=== PATIENT | male | born 2000 | race Caucasian/White ===

== ENCOUNTER 2020-11-30 21:30 | Inpatient (IN) | payer OTHER, SELFPAY ==
[2020-11-30 21:31] VITALS: BP 138/89; PULSE 69; RESP 15; TEMP 36.8; O2SAT 100; BMI 25.0
[2020-11-30 21:33] VITALS: BP 138/89; PULSE 69; RESP 15; TEMP 36.8; O2SAT 100
--- NOTE | 2020-11-30 22:09 | EX.ED.DYSGE1 ---
HPI History of Present Illness Chief Complaint: Fever Informant: patient and parent Narrative Narrative: Patient presents with sores on his legs along with some nausea vomiting and generalized malaise. About 10 days ago he started with multiple boils or superficial abscesses on both lower legs. No known exposure. They were draining purulent material. They are improving now. Over the last week he has had some mild myalgias, decreased energy. His appetite has been down. He did have some nausea and vomiting but has not vomited since earlier today. That portion is feeling a little better. He has never had abdominal pain or back pain. No cough or trouble breathing. He has had some myalgias but no focal headache. No confusion. He denies any chronic medical conditions No current medications No allergies No surgeries Lives with family, no one else ill. [facility] Home Medications NK 11/30/20 [History Last Taken Unknown] Allergy/AdvReac Type Severity Reaction Status Date / Time No Known Allergies Allergy Verified 11/30/20 21:34 Social History Smoking Status: Former smoker ROS ROS ED Constitutional Constitutional ED: Reports chills and fever(s); Denies weight loss Eyes Eyes: Denies change in vision ENT ENT ED: Reports other Details: On specific questioning, patient states he has had about 2 mild nosebleeds over the past week. ; Denies rhinorrhea or sore throat Cardiovascular Cardiovascular: Denies chest pain or palpitations Respiratory/Chest Respiratory/Chest: Denies cough, dyspnea, dyspnea on exertion or sputum Gastrointestinal Gastrointestinal: Reports diarrhea, nausea, vomiting and other Details: Nausea vomiting as above. He also had some mild diarrhea for 5 days ago but that seems to have resolved. ; Denies abdominal pain, constipation or melena Genitourinary Genitourinary ED: Denies dysuria or hematuria Musculoskeletal Musculoskeletal: Reports myalgias; Denies neck pain Integumentary Reports abscess and rash; Denies Abrasions Neurologic Neurologic: Denies headache(s), paresthesias or weakness Endocrine Endocrinology: Denies polydipsia or polyuria Allergic/Immunologic Allergic/Immunologic ED: Denies urticaria EXAM Physical Exam Const Vital Signs: 11/30/20 21:31 11/30/20 21:33 11/30/20 22:21 Temperature 98.3 F 98.3 F Temperature Source Temporal Temporal Pulse Rate 69 69 Respiratory Rate 15 15 Respiratory Effort Normal Respiratory Pattern Normal Blood Pressure 138/89 H 138/89 H Blood Pressure Mean 105 105 Pulse Ox 100 100 Oxygen Delivery Method Room Air Room Air 11/30/20 23:21 11/30/20 23:58 Temperature 99 F 99 F Temperature Source Oral Oral Pulse Rate 62 62 Respiratory Rate 14 14 Respiratory Effort Respiratory Pattern Blood Pressure 132/79 H 132/79 H Blood Pressure Mean 96 96 Pulse Ox 100 100 Oxygen Delivery Method Room Air Room Air Positive well nourished and well developed General Appearance ED: well developed HEENT Reports dry mucous membranes Mouth ED: Yes dry mucous membranes Mouth: dry mucous membranes Eyes General Eye ED: Negative for pale conjunctiva or scleral icterus Neck no lymphadenopathy Neck Narrative: No lymphadenopathy or meningismus. Chest Wall inspection of chest normal and palpation of chest normal Resp normal respiratory effort and clear to auscultation bilaterally Effort and Inspection: Negative for pain with movement Auscultation: Negative for wheezes Cardio regular rate, regular rhythm and no murmurs GI normal to inspection, nondistended, normoactive bowel sounds and non-tender GI Narrative: Despite his symptoms his abdomen is quite benign. I press firmly in all areas. I can even shake my hands back and forth and there is no discomfort. Palpation: soft Back/Spine no CVA tenderness Extremity Extremity Narrative: Normal other than skin changes as below. Neuro oriented x3 Sensorium / Orientation: alert Psych mental status grossly normal Skin Skin Narrative: Patient has multiple mostly drying erythematous lesions with some crusting in bilateral lower extremities. None of these look like they could be drained. There is no lymphangitic streaking although there is some localized erythema. These are not purpuric. No petechiae. MDM MDM MDM Narrative Medical decision making narrative: Patient's blood work showed some very mild pancytopenia. Electrolytes showed minimally low sodium. Potassium was normal. But his BUN and creatinine were significantly elevated showing acute kidney injury. Liver function tests were normal. I am still waiting urinalysis. I am concerned this could even be a small vessel vasculitis. This is possible to be HSP. With his acute kidney injury he clearly needs to come in the hospital. I discussed the case with the hospitalist and the patient will be admitted for further evaluation and treatment. Lab Data Labs: Laboratory Results - last 24 hr 11/30/20 11/30/20 22:15 22:15 WBC 3.9 L RBC 4.16 L Hgb 12.4 L Hct 36.1 L MCV 86.8 MCH 29.8 MCHC 34.3 RDW Std Deviation 38.2 RDW Coeff of Katty 11.9 Plt Count 104 L MPV 9.5 Immature Gran % (Auto) 0.300 Neut % (Auto) 46.9 L Lymph % (Auto) 30.0 [place] % (Auto) 18.7 H Eos % (Auto) 3.6 Baso % (Auto) 0.5 Absolute Neuts (auto) 1.8 L Absolute Lymphs (auto) 1.17 Nucleated RBC % 0 Sodium 135 L Potassium 3.9 Chloride 102 Carbon Dioxide 24.0 Anion Gap 9 BUN 51 H Creatinine 7.13 H Estim Creat Clear Calc 17.84 Est GFR (MDRD) Af Amer 12 L Est GFR (MDRD) Non-Af 10 L BUN/Creatinine Ratio 7.2 L Glucose 87 Calcium 8.8 Total Bilirubin 0.50 AST 31 ALT 20 Alkaline Phosphatase 66 Total Protein 6.7 Albumin 3.5 Globulin 3.2 Albumin/Globulin Ratio 1.1 Discharge Plan Dx/Rx/DC Orders Clinical Impression: Acute kidney injury Disposition Disposition: Acute Care Hospital [facility]
[2020-11-30] MEDS: 0.9% Normal Saline 1,000 ML 1000 ML IV ×2 (22:16→23:19)
[2020-11-30] MEDS: Ondansetron 4 MG/2 ML Vial IV (22:16)
[2020-11-30 22:29] LABS: Absolute Lymphocyte Count 1.17 X10^3/uL (0.83-4.51); Absolute Neutrophil Count 1.8 X10^3/uL (2.0-7.7); Basophil# 0.02 X10^3/uL; Basophil% 0.5 % (0-1); Eosinophil# 0.14 X10^3/uL; Eosinophils% 3.6 % (0-5); Hematocrit 36.1 % (40-54); Hemoglobin 12.4 g/dL (13.0-16.5); Lymphocyte # 1.17 X10^3/ul (0.83-4.51); Mean Corp Hgb Conc 34.3 g/dL (32-36); Mean Corpuscular Hgb 29.8 pg (27.0-32.0); Mean Corpuscular Volume 86.8 fL (80-94); Mean Platelet Vol. 9.5 fl (6.2-12.0); Monocyte# 0.73 X10^3/uL; Monocyte% 18.7 % (0-10); NRBC Flagged by Analyzer 0 % (0-5); Neutrophil # 1.83 X10^3/uL (2.7-7.7); Neutrophil % 46.9 % (47-70); Platelet Count 104 K/mm3 (150-450); RBC Distribution Width CV 11.9 % (11.6-14.6); RBC Distribution Width SD 38.2 fl (35.1-43.9); Red Blood Count 4.16 M/mm3 (4.6-6.2); White Blood Count 3.9 K/mm3 (4.4-11.0)
[2020-11-30 22:40] LABS: ALB/GLOB Ratio 1.1 RATIO (0.9-2.4); AST(SGOT) 31 U/L (15-37); Alanine Aminotransfer ALT/SGPT 20 U/L (16-61); Albumin, Serum 3.5 g/dL (3.2-5.0); Alkaline Phosphatase 66 U/L (45-117); Anion Gap 9 (5-15); BUN 51 mg/dL (7-18); BUN/Creat Ratio 7.2 RATIO (10-20); Calcium,Total 8.8 mg/dL (8.5-10.1); Chloride 102 mmol/L (98-107); Creatinine, Serum 7.13 mg/dL (0.70-1.30); EST Glomerular Filtration Rate 10 mL/min (>60); Est Glom Filt Rate - Afr Amer 12 mL/min (>60); Estimated Creatinine Clearance 17.84 ml/min; Globulin 3.2 g/dL (2.2-4.2); Glucose 87 mg/dL (74-106); Potassium 3.9 mmol/L (3.5-5.1); Protein, Total 6.7 g/dL (6.4-8.2); Sodium Level 135 mmol/L (136-145)
[2020-11-30 23:21] VITALS: BP 132/79; PULSE 62; RESP 14; TEMP 37.2; O2SAT 100
--- NOTE | 2020-11-30 23:48 | HP.PCM.HOS_ITS ---
[facility] - General General Date of Admission: 11/30/20 Date of Service: 11/30/20 Chief Complaint: Fever, headache, generalized body pains - 5 days ulcers on legs - 1 and half weeks HPI Narrative ALLEY DUTTA, is a 20 M who presents with the above. Patient has numerous significant past medical history. He notes that his that he had bilateral lower leg blisters/wounds and came on suddenly. These boils/blisters pop spontaneously. He denied any contact with any materials or chemicals. He denied any other rash in any part of his body. He also has been having fever with generalized aches and headaches ongoing for about 5 days. He has severe nausea and is unable to drink. He denied any vomiting or diarrhea. His stools are soft but not watery. Denied any hematochezia or hematemesis. He denied any sore throat. He has been having i ntermittent nosebleeds. He last urinated the day before. He has urinated on the day of admission. His last urine was dark orange. [facility] Medical History Former smoker Home Medications NK 11/30/20 [History Last Taken Unknown] Allergy/AdvReac Type Severity Reaction Status Date / Time No Known Allergies Allergy Verified 11/30/20 21:34 Family History (Updated 12/01/20 @ 01:[address] Dinah Wall MD) Father Cancer Leukemia no surgical history Social History (Updated 12/01/20 @ 01:[address] Dinah Wall MD) Smoking Status: Former smoker details: occasional alcohol substance use type: does not use ROS ROS Narrative Constitutional: Reports: Malaise, Weakness, Fatigue, Anorexia. Denies: Chills, Fever, Night Sweats, Weight Change Eyes: Denies: Blurred vision, Cataracts, Conjunctivae Inflammation, Pain, Redness, Vision Change HEENT: Denies: Difficulty Hearing, Difficulty Swallowing, Head Aches, Hearing Changes, Sinus Congestion, Sinus Drainage Cardiovascular: Denies: Chest Pain, Orthopnea, Palpitations Respiratory: Denies: Cough, Shortness of breath at rest, Sputum production Gastrointestinal: Admits to nausea, Denies: Abdominal Pain, Nausea, Vomiting Genitourinary: Low urine output Denies: Dysuria Musculoskeletal: Denies: Joint Pain, Joint stiffness, Joint swelling, Joint Ten derness Skin: Bilateral leg wounds Neurological: Denies: Numbness, Tingling, Focal weakness Vital Signs Vital Signs Vital Signs: 11/30/20 21:31 11/30/20 21:33 11/30/20 22:21 Temperature 98.3 F 98.3 F Temperature Source Temporal Temporal Pulse Rate 69 69 Respiratory Rate 15 15 Respiratory Effort Normal Respiratory Pattern Normal Blood Pressure 138/89 H 138/89 H Blood Pressure Mean 105 105 Pulse Ox 100 100 Oxygen Delivery Method Room Air Room Air 11/30/20 23:21 Temperature 99 F Temperature Source Oral Pulse Rate 62 Respiratory Rate 14 Respiratory Effort Respiratory Pattern Blood Pressure 132/79 H Blood Pressure Mean 96 Pulse Ox 100 Oxygen Delivery Method Room Air Weight Weight: 83.915 kg Body Mass Index (BMI) 25.0 Physical Exam Narrative Physical exam: General: Alert, Oriented x3, Cooperative, No apparent distress, Well developed HEENT: Atraumatic Oral: Moist Mucosa Neck: Supple Lungs: Clear to auscultation Cardiovascular: HS I+II, regular, no murmurs Abdomen: Bowel Sounds Present, Soft, Non Tender Extremities: No edema Skin: Bilateral leg ulcers in various stages of healing, no petechia Neurological: Grossly intact Psych/Mental Status: Appropriate Results Lab / Micro Data Result Diagrams: 11/30/20 22:15 11/30/20 22:15 Labs: Laboratory Results - last 24 hr 11/30/20 22:15: WBC 3.9 L, RBC 4.16 L, Hgb 12.4 L, Hct 36.1 L, MCV 86.8, MCH 29 .8, MCHC 34.3, RDW Std Deviation 38.2, RDW Coeff of Katty 11.9, Plt Count 104 L, MPV 9.5, Immature Gran % (Auto) 0.300, Neut % (Auto) 46.9 L, Lymph % (Auto) 30.0, [place] % (Auto) 18.7 H, Eos % (Auto) 3.6, Baso % (Auto) 0.5, Absolute Neuts (auto) 1.8 L, Absolute Lymphs (auto) 1.17, Nucleated RBC % 0 11/30/20 22:15: Sodium 135 L, Potassium 3.9, Chloride 102, Carbon Dioxide 24.0, Anion Gap 9, BUN 51 H, Creatinine 7.13 H, Estim Creat Clear Calc 17.84, Est GFR (MDRD) Af Amer 12 L, Est GFR (MDRD) Non-Af 10 L, BUN/Creatinine Ratio 7.2 L, Glucose 87, Calcium 8.8, Total Bilirubin 0.50, AST 31, ALT 20, Alkaline Phosphatase 66, Total Protein 6.7, Albumin 3.5, Globulin 3.2, Albumin/Globulin Ratio 1.1 Assessment & Plan Assessment/Plan (1) Acute kidney injury: (2) Bilateral leg ulcer: PLAN: 1. Acute kidney injury, unclear etiology for now, probably multif actorial; prerenal/intrinsic Suspected vasculitis -recent leg ulcers, nosebleeds No previous creatinine to compare; admitting creatinine 7.13, BUN is 51 No electrolyte imbalances Will admit to PCU, aggressive IV fluids, shirley catheter for strict I &Os, stat UA, urine sodium, urine creatinine, nephrology consulted from the ED Check DESHAUN, P-ANCA 2. Thrombocytopenia, platelet count is 104, no previous levels to compare, no schistocytes on peripheral smear( confirmed with lab) Awaiting UA, will trend Charges/Coding Visit Charges Inpatient E&M: 39450 Init Hosp L3
[2020-11-30 23:58] VITALS: BP 132/79; PULSE 62; RESP 14; TEMP 37.2; O2SAT 100
[2020-12-01] VITALS (10 sets, daily range): BP systolic 124–147; BP diastolic 60–89; PULSE 52–91; RESP 16–18; TEMP 37.1–37.7; O2SAT 96–100; BMI 27.1
--- NOTE | 2020-12-01 00:05 | US_ITS ---
EXAM: US RETROPERITONEAL COMPLETE, RENAL CLINICAL INDICATION: GHANSHYAM TECHNIQUE: Grayscale and color Doppler sonographic evaluation of the retroperitoneum was performed. This report was created using OpenPortal report Purple Harry technology. COMPARISON: None. FINDINGS: RIGHT KIDNEY: Mildly increased echogenicity of the right renal cortex. No hydronephrosis. No shadowing calculus. No perinephric collection is demonstrated. LEFT KIDNEY: Mildly increased echogenicity of the left renal cortex. No hydronephrosis. No shadowing calculus. No perinephric collection is demonstrated. BLADDER: Urinary bladder is nondistended, poorly evaluated. FREE FLUID: Trace ascites identified in the left upper quadrant, midline pelvis and right lower quadrant. US/Kidney and Bladder IMPRESSION: 1. No hydronephrosis. Increased echogenicity of the kidneys suggesting medical renal disease. 2. Trace ascites. Electronically Signed: Luis Miguel Luis MD ([place]) at 8:07 EDT , Service support ,
--- NOTE | 2020-12-01 00:48 | NURSING ---
This RN spoke with Dr. Wall regarding order for Shirley placement with rationale for accurate I/O. This RN informed Dr. Wall that this was not appropriate rationale for our unit and was reserved for ICU/critical care. Pt is a&o x3 and able to use urinal. Discussed with pt need for measuring urine and pt indicated his understanding. Dr. Wall insists at this time that nursing place shirley on pt d/t elevated creatinine level.
[2020-12-01] MEDS: 0.9% Normal Saline 1,000 ML 250 ML IV ×6 (00:53→23:36)
--- NOTE | 2020-12-01 00:57 | NURSING ---
pt bladder scanned for 189
--- NOTE | 2020-12-01 01:19 | NURSING ---
pt voided 195 at this time, bladder scanned for 0 mL
--- NOTE | 2020-12-01 02:13 | NURSING ---
pt declines shirley catheter insertion at this time, understands he is to void each time in urinal for accurate urine output measure. States if catheterization becomes necessary he will accept. Explained to pt that this nurse will bladder scan after each void to assess for retention. Voiced understanding.
--- NOTE | 2020-12-01 03:05 | NURSING ---
pt educated on risks vs benefits of shirley catheter placement, at this time, pt voided for UA very little, enough for one tube. Bladder scanned after for 0 mL with multiple scan attempts. Denies urinary symptoms. Pt declines shirley catheter placement at this time and wishes to speak with paper steamer in the morning. Will monitor and update as needed.
[2020-12-01 03:19] LABS: Mucous, Urine 0 SEEN /hpf (<or=2+)
[2020-12-01 03:21] LABS: Color, Urine Yellow (Yellow); Glucose, Dipstick Normal (Normal); Ketone-Dipstick 5 mg/dl (Negative); Leukocyte Esterase-Dipstick 25 /ul (Negative); Nitrite-Dipstick Negative (Negative); Occult Blood-Urine 50 /ul (Negative); Protein-Dipstick 500 mg/dl (Negative); Urine Clarity Clear (Clear); Urine Urobilinogen 1 mg/dl (Normal)
[2020-12-01 03:33] LABS: Urine Bilirubin Dipstick 3 mg/dL (Negative)
[2020-12-01 03:38] LABS: Squamous Epithelial Cells - UA 0-5 SEEN /hpf (0-5); Transitional Epithelial - Ur 0-5 SEEN /hpf (0-5)
[2020-12-01 03:39] LABS: White Blood Cells 25-50 SEEN /hpf (0-5)
[2020-12-01 03:42] LABS: Red Blood Cells-Urine 10-25 SEEN /hpf (0-5)
[2020-12-01 03:47] LABS: Amorphous Sediment 1+; Bacteria 2+ /hpf (None Seen)
[2020-12-01 03:52] LABS: Hyaline Cast 5-10 SEEN /lpf (0-5)
[2020-12-01] MEDS: Ondansetron 4 MG/2 ML Vial IV (06:39)
[2020-12-01] MEDS: 0.9% Saline Lock 10 ML Syringe IV (06:39)
[2020-12-01 06:48] LABS: Absolute Lymphocyte Count 0.96 X10^3/uL (0.83-4.51); Absolute Neutrophil Count 1.7 X10^3/uL (2.0-7.7); Basophil# 0.02 X10^3/uL; Basophil% 0.6 % (0-1); Eosinophil# 0.11 X10^3/uL; Eosinophils% 3.2 % (0-5); Hematocrit 34.6 % (40-54); Hemoglobin 11.5 g/dL (13.0-16.5); Lymphocyte # 0.96 X10^3/ul (0.83-4.51); Lymphocyte % 28.2 % (19-41); Mean Corp Hgb Conc 33.2 g/dL (32-36); Mean Corpuscular Hgb 29.4 pg (27.0-32.0); Mean Corpuscular Volume 88.5 fL (80-94); Mean Platelet Vol. 10.1 fl (6.2-12.0); Monocyte# 0.62 X10^3/uL; Monocyte% 18.2 % (0-10); NRBC Flagged by Analyzer 0 % (0-5); Neutrophil # 1.68 X10^3/uL (2.7-7.7); Neutrophil % 49.5 % (47-70); POSITIVE COUNT YES; Platelet Count 85 K/mm3 (150-450); RBC Distribution Width CV 11.9 % (11.6-14.6); RBC Distribution Width SD 38.3 fl (35.1-43.9); Red Blood Count 3.91 M/mm3 (4.6-6.2); White Blood Count 3.4 K/mm3 (4.4-11.0)
[2020-12-01 06:57] LABS: Differential Indicated SCAN CRITERIA MET
[2020-12-01 07:17] LABS: ALB/GLOB Ratio 1.1 RATIO (0.9-2.4); AST(SGOT) 31 U/L (15-37); Alanine Aminotransfer ALT/SGPT 22 U/L (16-61); Alkaline Phosphatase 61 U/L (45-117); Anion Gap 11 (5-15); BUN 52 mg/dL (7-18); BUN/Creat Ratio 7.2 RATIO (10-20); Calcium,Total 7.6 mg/dL (8.5-10.1); Chloride 104 mmol/L (98-107); Creatinine, Serum 7.27 mg/dL (0.70-1.30); EST Glomerular Filtration Rate 10 mL/min (>60); Est Glom Filt Rate - Afr Amer 12 mL/min (>60); Estimated Creatinine Clearance 17.49 ml/min; Globulin 2.8 g/dL (2.2-4.2); Glucose 76 mg/dL (74-106); Phosphorus 4.3 mg/dL (2.5-4.9); Platelet Estimate MKD DEC (ADEQ); Potassium 3.8 mmol/L (3.5-5.1); Protein, Total 5.8 g/dL (6.4-8.2); Sodium Level 137 mmol/L (136-145)
[2020-12-01 07:26] LABS: Urine Sodium 28 mmol/L (Not Establ.)
[2020-12-01 08:09] LABS: LDH 213 U/L (87-241)
[2020-12-01 08:11] LABS: International Normalized Ratio 1.2; Prothrombin Time (Protime)PT. 14.4 SECONDS (11.7-14.9)
[2020-12-01 08:29] LABS: CPK Total, Creatine Kinase 65 U/L (39-308)
[2020-12-01 08:51] LABS: Protein, Urine (Random) 1093.7 mg/dL (<11.9); Protein:Creat Ratio 1220 mg/g CRE (0-200)
[2020-12-01] MEDS: Acetaminophen 325 MG Tablet 650 MG PO (09:18)
--- NOTE | 2020-12-01 09:55 | PCM.CONS.R ---
Assessment & Plan Assessment/Plan (1) Acute kidney injury: PLAN: creatinine 7.27 with FENA <1%. Continue with hydration. Serology w/u in progress. Evaluate for hematuria. Renal US with bilateral echogenic kidneys. No prior labs available. Check 24h urine CRCL, TP. Discussed kidney biopsy, dialysis, PLEX depending on serologies. LDH not elevated at 213, CK 65. (2) Bilateral leg ulcer: PLAN: dry wounds bilateral LE (3) Pancytopenia: PLAN: consult hematology. for leukemia. LDH 213 (4) Proteinuria: PLAN: UPCR 1.28g/g check 24h urine HPI Consult Data Date of Consult: 12/01/20 HPI Narrative HPI Narrative: ALLEY DUTTA, is a 20 M who presents with generalized malaise, anorexia, nausea vomiting for the past week. He went to an urgent care center in [place] due to persistent symptoms. He was told that he had Covid. His Covid test is pending. He presents to the [facility] emergency room last night with same symptoms, weakness. He noticed punctated lesions in his ankle bilaterally since over the weekend. Denies any itchiness or blisters. Denies scratching his skin lesions but did notice bleeding of his lesions from bumping his skin on objects. He noticed drop in urinary output the past couple of days. Noticed tea colored urine without foam. Denies any flank pain. Denies any diarrhea but stools have been loose. He has noticed fever and chills or the weekend. He complains of nasal congestion with headache. Admits to epistaxis but denies any hemoptysis. Denies any loss of taste or smell. He had a faint cough without sore throat. He did get tested for strep throat at the urgent care center in [place]. Upon presentation to [facility] ER his creatinine was 7. Platelet was low at 85,000 and hemoglobin 11.5 WBC of 3.4. His urine sodium was 28 with urine creatinine of 890. Spot urine protein creatinine ratio showed 1.28 g of protein. UA with elevated specific gravity of 1.030 with RBCs and moderate blood. Kidney ultrasound showed bilateral echogenic kidneys. Serologies sent. No prior labs have been done in the past. He has been relatively healthy up until recently. Denies working out in the [place] in the heat. No sick contacts at home. Does not recall being bit by a tick but has been in an area 3 weeks ago where he could have potentially been exposed. [facility] Medical History Former smoker Home Medications NK 11/30/20 [History Last Taken Unknown] Allergy/AdvReac Type Severity Reaction Status Date / Time No Known Allergies Allergy Verified 11/30/20 21:34 Family History (Updated 12/01/20 @ 01:[address] Dinah Wall MD) Father Cancer Leukemia Social History (Updated 12/01/20 @ 01:[address] Dinah Wall MD) Smoking Status: Former smoker details: occasional alcohol substance use type: does not use ROS Constitutional Constitutional: Reports chills, fever(s), malaise, weakness and weight gain Eyes Eyes: Denies loss of vision ENT HEENT: Reports dry mouth, epistaxis and nasal congestion; Denies hoarseness or loss taste/smell Cardiovascular Cardiovascular: Denies chest pain or edema Respiratory/Chest Respiratory/Chest: Reports dry cough; Denies hemoptysis or shortness of breath at rest Gastrointestinal Gastrointestinal: Reports anorexia, nausea and vomiting; Denies abdominal pain, hematemesis, hematochezia or melena Genitourinary Genitourinary: Reports other Details: Decreased urine output, tea colored urine, no foamy urine ; Denies dysuria or flank pain Musculoskeletal Musculoskeletal: Denies arthralgias, joint stiffness or joint swelling Integumentary Integumentary: Reports lesions and other Details: punctated lesions on legs bilaterally with scabbing, no pets at home ; Denies pruritus Neurologic Neurologic: Denies abnormal gait or confusion Psychiatric Psychiatric: Denies anxiety or depression Hematologic/Lymphatic Hematologic/Lymphatic: Denies anemia Physical Exam Const alert and oriented x3 HEENT HEENT Narrative: pea size nodule on left earlobe Eyes PERRL Neck no lymphadenopathy, supple and no JVD Resp clear to auscultation bilaterally Cardio regular rate GI non-tender and non-distended Auscultation: normoactive bowel sounds Palpation: soft Back/Spine normal ROM Extremity full ROM, normal capillary refill and no clubbing, cyanosis or edema Peripheral Pulses: Yes pulses 2+ throughout Skin Wound Narrative: dry puncctated multiple skin lesions BLE with dry scab Neuro no focal motor deficits Sensorium / Orientation: awake and alert Motor Exam: muscle tone normal throughout Psych cooperative Lab / Micro Data Result Diagrams: 12/01/20 05:35 12/01/20 05:35 Labs: Laboratory Results - last 24 hr 11/30/20 22:15: WBC 3.9 L, RBC 4.16 L, Hgb 12.4 L, Hct 36.1 L, MCV 86.8, MCH 29.8, MCHC 34.3, RDW Std Deviation 38.2, RDW Coeff of Katty 11.9, Plt Count 104 L, MPV 9.5, Immature Gran % (Auto) 0.300, Neut % (Auto) 46.9 L, Lymph % (Auto) 30.0, [place] % (Auto) 18.7 H, Eos % (Auto) 3.6, Baso % (Auto) 0.5, Absolute Neuts (auto) 1.8 L, Absolute Lymphs (auto) 1.17, Nucleated RBC % 0 11/30/20 22:15: Sodium 135 L, Potassium 3.9, Chloride 102, Carbon Dioxide 24.0, Anion Gap 9, BUN 51 H, Creatinine 7.13 H, Estim Creat Clear Calc 17.84, Est GFR (MDRD) Af Amer 12 L, Est GFR (MDRD) Non-Af 10 L, BUN/Creatinine Ratio 7.2 L, Glucose 87, Calcium 8.8, Total Bilirubin 0.50, AST 31, ALT 20, Alkaline Phosphatase 66, Total Protein 6.7, Albumin 3.5, Globulin 3.2, Albumin/Globulin Ratio 1.1 12/01/20 03:00: Urine Color Yellow, Urine Clarity Clear, Urine pH 5.0, Ur Specific Henning 1.030, Urine Protein 500 H, Urine Glucose (UA) Normal, Urine Ketones 5 H, Urine Occult Blood 50 H, Urine Nitrite Negative, Urine Bilirubin 3 H, Urine Urobilinogen 1 H, Ur Leukocyte Esterase 25 H, Urine RBC 10-25 SEEN, Urine WBC 25-50 SEEN, Ur Squamous Epith Cells 0-5 SEEN, Ur Transition Epith Cell 0-5 SEEN, Amorphous Sediment 1+, Urine Bacteria 2+, Hyaline Casts 5-10 SEEN, Urine Mucus 0 SEEN 12/01/20 05:35: WBC 3.4 L, RBC 3.91 L, Hgb 11.5 L, Hct 34.6 L, MCV 88.5, MCH 29.4, MCHC 33.2, RDW Std Deviation 38.3, RDW Coeff of Katty 11.9, Plt Count 85 L, MPV 10.1, Immature Gran % (Auto) 0.300, Neut % (Auto) 49.5, Lymph % (Auto) 28.2, [place] % (Auto) 18.2 H, Eos % (Auto) 3.2, Baso % (Auto) 0.6, Absolute Neuts (auto) 1.7 L, Absolute Lymphs (auto) 0.96, Nucleated RBC % 0, Platelet Estimate MKD 12/01/20 05:35: Sodium 137, Potassium 3.8, Chloride 104, Carbon Dioxide 22.0, Anion Gap 11, BUN 52 H, Creatinine 7.27 H, Estim Creat Clear Calc 17.49, Est GFR (MDRD) Af Amer 12 L, Est GFR (MDRD) Non-Af 10 L, BUN/Creatinine Ratio 7.2 L, Glucose 76, Calcium 7.6 L, Phosphorus 4.3, Total Bilirubin 0.40, AST 31, ALT 22, Alkaline Phosphatase 61, Total Protein 5.8 L, Albumin 3.0 L, Globulin 2.8, Albumin/Globulin Ratio 1.1 12/01/20 06:30: Ur Random Sodium 28, Urine Creatinine > 900.00 12/01/20 06:30: U Random Total Protein 1093.7 H, Urine Creatinine 890.00, Protein/Creatinin Ratio 1220 H 12/01/20 07:45: PT 14.4, INR 1.2 12/01/20 07:45: Lactate Dehydrogenase 213 12/01/20 07:45: Total Creatine Kinase 65 Radiology Impression Renal Ultrasound 12/01/20 00:05 IMPRESSION: 1. No hydronephrosis. Increased echogenicity of the kidneys suggesting medical renal disease. 2. Trace ascites. Electronically Signed: Luis Miguel Luis MD ([place]) at 8:07 EDT , Service support ,
--- NOTE | 2020-12-01 10:30 | CASEMGMT ---
PIERRE ZARCO assessment: Face to Face with patient for initial transition planning/care coordination assessment. PIERRE ZARCO introduced self and role at [facility], pt voices understanding and consents to assessment. Pt is sitting up in bed in no distress. Pt is A/Ox4 and answers all questions appropriately. Care providers, pharmacy, and demographics verified. Presentation: Pt states started with 'sores' on his legs last week or so, pt put salve on, now with fever Admitting dx: GHANSHYAM PCP: Get Specialists: Pt states no current specialists. Preferred Pharmacy: [facility] Insurance: [employer] aid Prescription Benefit: Self pay Living Will/HPOA: Pt states does not have LW/HPOA and declines AD info. LNOK: Atlee Mast, father Living Arrangements: Pt states lives with in home and states no concerns at home. Pt states is independent with ADL's. Transportation: Pt states no transportation concerns. DME/HHC: Pt states no current DME or need for any DME. Pt states no hx of HHC/SNF. Pt states no concerns with going home at time of discharge. 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 Pt states chews tobacco and occasionally drinks ETOH. Pt states no further concerns/needs. CM to follow for any further discharge planning/needs. Advised pt to ask for CM if any further questions/concerns/needs arise, voices understanding. Pt Goal: Home Plan[place] PIERRE ZARCO
[2020-12-01 11:05] LABS: Partial Thromboplast Time 29.8 Seconds (24.1-36.2)
[2020-12-01 11:15] LABS: Ferritin 126 ng/mL (26-388); Iron 25 ug/dL (65-175); Iron Binding Capacity,Total 219 ug/dL (250-450); PERCENT IRON SATURATION 11.4 % (15.0-55.0)
[2020-12-01 11:17] LABS: Vitamin B12 499 pg/mL (211-911)
[2020-12-01 11:24] LABS: Erythrocyte Sedimentation Rate 2 mm/hr (0-20)
[2020-12-01 11:32] LABS: Immature Platelet Fraction 2.3 % (1.0-7.9); Platelet Count 87 K/mm3 (150-450); RET-HE 31.3 pg (30-35); Reticulocyte Count 1.04 % (0.5-1.5)
--- NOTE | 2020-12-01 16:09 | PN.HOSP_ITS ---
Subjective Subjective Patient had her last normal urine output, clear in color about 2 to 3 days ago, last /Tuesday. There are multiple superficial skin scabs and ulcer over lower legs. In 1 time a small hemoptysis. Discussed with the digital marketing intern. Objective Data Objective Data Vital Signs: Vital Signs Temp Pulse Resp BP Pulse Ox 98.7 F 65 18 124/60 H 96 12/01/20 13:30 12/01/20 13:30 12/01/20 13:30 12/01/20 13:30 12/01/20 13:30 Oxygen Delivery Method Room Air Weight: 200 lb 13.458 oz Body Mass Index (BMI) 27.1 Intake & Output: Intake and Output for Last 24 Hours 11/29/20 11/30/20 12/01/20 23:59 23:59 23:59 Intake Total 1000 / 1000 3897.49 / 3897.49 Output Total 207 / 207 Balance 1000 / 1000 3690.49 / 3690.49 Lab / Micro Data Result Diagrams: 12/01/20 05:35 12/01/20 05:35 Labs: Laboratory Results - last 24 hr 11/30/20 22:15: WBC 3.9 L, RBC 4.16 L, Hgb 12.4 L, Hct 36.1 L, MCV 86.8, MCH 29.8, MCHC 34.3, RDW Std Deviation 38.2, RDW Coeff of Katty 11.9, Plt Count 104 L, MPV 9.5, Immature Gran % (Auto) 0.300, Neut % (Auto) 46.9 L, Lymph % (Auto) 30.0, [place] % (Auto) 18.7 H, Eos % (Auto) 3.6, Baso % (Auto) 0.5, Absolute Neuts (auto) 1.8 L, Absolute Lymphs (auto) 1.17, Nucleated RBC % 0 11/30/20 22:15: Sodium 135 L, Potassium 3.9, Chloride 102, Carbon Dioxide 24.0, Anion Gap 9, BUN 51 H, Creatinine 7.13 H, Estim Creat Clear Calc 17.84, Est GFR (MDRD) Af Amer 12 L, Est GFR (MDRD) Non-Af 10 L, BUN/Creatinine Ratio 7.2 L, Glucose 87, Calcium 8.8, Total Bilirubin 0.50, AST 31, ALT 20, Alkaline Phosphatase 66, Total Protein 6.7, Albumin 3.5, Globulin 3.2, Albumin/Globulin Ratio 1.1 12/01/20 03:00: Urine Color Yellow, Urine Clarity Clear, Urine pH 5.0, Ur Specific [place] 1.030, Urine Protein 500 H, Urine Glucose (UA) Normal, Urine Ketones 5 H, Urine Occult Blood 50 H, Urine Nitrite Negative, Urine Bilirubin 3 H, Urine Urobilinogen 1 H, Ur Leukocyte Esterase 25 H, Urine RBC 10-25 SEEN, Urine WBC 25-50 SEEN, Ur Squamous Epith Cells 0-5 SEEN, Ur Transition Epith Cell 0-5 SEEN, Amorphous Sediment 1+, Urine Bacteria 2+, Hyaline Casts 5-10 SEEN, Urine Mucus 0 SEEN 12/01/20 05:35: WBC 3.4 L, RBC 3.91 L, Hgb 11.5 L, Hct 34.6 L, MCV 88.5, MCH 29.4, MCHC 33.2, RDW Std Deviation 38.3, RDW Coeff of Katty 11.9, Plt Count 85 L, MPV 10.1, Immature Gran % (Auto) 0.300, Neut % (Auto) 49.5, Lymph % (Auto) 28.2, [place] % (Auto) 18.2 H, Eos % (Auto) 3.2, Baso % (Auto) 0.6, Absolute Neuts (auto) 1.7 L, Absolute Lymphs (auto) 0.96, Nucleated RBC % 0, Platelet Estimate MKD 12/01/20 05:35: Sodium 137, Potassium 3.8, Chloride 104, Carbon Dioxide 22.0, Anion Gap 11, BUN 52 H, Creatinine 7.27 H, Estim Creat Clear Calc 17.49, Est GFR (MDRD) Af Amer 12 L, Est GFR (MDRD) Non-Af 10 L, BUN/Creatinine Ratio 7.2 L, Glucose 76, Calcium 7.6 L, Phosphorus 4.3, Total Bilirubin 0.40, AST 31, ALT 22, Alkaline Phosphatase 61, Total Protein 5.8 L, Albumin 3.0 L, Globulin 2.8, Albumin/Globulin Ratio 1.1 12/01/20 05:35: Immature Plt Fraction 2.3, ESR 2, Retic Count 1.04, Immature Retic Fraction 11.90, Retic Hgb Equivalent 31.3 12/01/20 06:30: Ur Random Sodium 28, Urine Creatinine > 900.00 12/01/20 06:30: U Random Total Protein 1093.7 H, Urine Creatinine 890.00, Protein/Creatinin Ratio 1220 H 12/01/20 07:45: PT 14.4, INR 1.2 12/01/20 07:45: Lactate Dehydrogenase 213 12/01/20 07:45: Total Creatine Kinase 65 12/01/20 07:45: APTT 29.8 12/01/20 07:45: Vitamin B12 499 12/01/20 07:45: Iron 25 L, TIBC 219 L, Iron Saturation 11.4 L, Ferritin 126 Radiography Diagnostic Testing: Radiology Impression Renal Ultrasound 12/01/20 00:05 IMPRESSION: 1. No hydronephrosis. Increased echogenicity of the kidneys suggesting medical renal disease. 2. Trace ascites. Electronically Signed: Luis Miguel Luis MD ([facility]) at 8:07 EDT , Service support , Physical Exam Narrative Physical exam General: Alert, Oriented x3, Cooperative HEENT: Atraumatic, PERRLA, EOMI, Normocephalic Oral: No Gingival or Mucosal Lesions/ Ulcerations Neck: Supple, No JVD, Negative Carotid Bruits Lungs: Air entry equal in bilateral lung bases. No crepitation/rhonchi Cardiovascular: Regular rate, Regular Rhythm, Normal S1, Normal S2, No murmurs Abdomen: Bowel Sounds Present, Soft, Non Tender, Non-Distended : No renal angle tenderness. No suprapubic tenderness. Extremities: No edema, Capillary Refill Less than 3 Seconds Skin: Multiple small superficial, dry scabs over bilateral lower legs below knee level. No open drainage. Musculoskeletal: No Tenderness to Palpation of Joints or Extremities Neurological: Cranial nerves II-XII grossly intact, DTR 2+/4 and Symmetrical, Neuro grossly intact Psych/Mental Status: Normal Affect, Appropriate. Assessment & Plan Assessment/Plan (1) Acute kidney injury: PLAN: 1. Acute kidney injury, unclear etiology for now, probably ATN/glomerular disease: UA shows protein 500, RBC 10-25 cells, WBC 25-50 cells, hyaline cast, amorphous sediment, LE 25, nitrite negative. Specific gravity on higher side of normal. Discussed with the digital marketing intern. Renal ultrasound shows medical renal disease. Patient had total of 207 mL of urine output. Patient does not want Samuels catheter and as per digital marketing intern okay to monitor on urine pot and bladder scan. 2. Bilateral scab on the lower legs, exact etiology unclear: It does not clinic ally fit in erythema nodosum or reticular rash or cryoglobulin rash. ESR and LDH are normal. Autoimmune markers are ordered. 2. Mild pancytopenia: Discussed with the pharmacy technician trainee, Dr Louise. He reviewed the slight and not consistent with schistocytes/microangiopathic hemolytic anemia. In view of fever may be viral induced pancytopenia. Immature reticulocyte fraction not elevated. Not planning for bone marrow biopsy. Monitor CBC daily. Haptoglobin pending. Viral hepatitis titers ordered. COVID-19 rapid antigen ordered. In view of mild hemoptysis which may be URI/dry nose, CT chest without contrast ordered looking for fibronodular disease. VT prophylaxis: Moderate risk in view of acute kidney failure: Early ambulation encouraged. He is not candidate for pharmacological prophylaxis or mechanical/SCD because of leg scabs Total time of the visit including total time spent in counseling or coordination of care, (more than 50% of the total time, spent in obtaining medical i nformation from nurses and other ancillary care providers,explaining to the patient about labs, imaging, diagnosis and management), discussion with digital marketing intern and pharmacy technician trainee, review of labs and imaging is 30 minutes. Charges/Coding Visit Charges Inpatient E&M: 64858 Subs Hosp L3
--- NOTE | 2020-12-01 16:18 | CT_ITS ---
STUDY: CT CHEST WITHOUT CONTRAST REASON FOR EXAM: Male, 20 years old. rule out Pulmonary fibronodular disease,GHANSHYAM -- mild hemoptysis. Blood RADIATION DOSAGE (If Supplied By Facility): CTDIvol = ( 9.42 ) mGy, DLP = ( 283.08 ) mGycm TECHNIQUE: Transaxial imaging was performed without the administration of intravenous contrast material. Individualized dose optimization techniques were used for this CT. COMPARISON: None. FINDINGS: Normal lung volumes. Mild atelectasis along the posterior aspects of both lungs. Trace bilateral pleural effusions. Normal heart and pericardium. Normal mediastinum. Normal hilar regions. Normal unenhanced pulmonary arteries. Normal aorta arch and descending thoracic aorta. Normal osseous structures. There is no demonstrated abnormality of the visualized upper abdomen. CT/Chest without Contrast IMPRESSION: Mild atelectasis along the posterior aspects of both lungs. Trace bilateral pleural effusions. Electronically Signed: Bobby Mcghee MD at 17:50 EDT , Service support ,
--- NOTE | 2020-12-01 16:20 | CON.PCM.ON_ITS ---
Assessment & Plan Assessment/Plan (1) Pancytopenia: Status: Acute Code(s): D61.818 - Other pancytopenia Plan: 20-year-old male presenting with an acute febrile illness, weeks history of localized rash over the shins, acute kidney injury and pancytopenia. Lab evaluation so far shows no evidence for nutritional deficiencies of iron or B12, there is no evidence for hemolysis, his erythrocyte sedimentation rate is not elevated, his total protein and gamma globulins are not elevated. He has a proteinuria. Serum and urine protein electrophoresis and immune fixation studies ordered and pending. The hematologic picture is more consistent with an acute viral illness and does not suggest a primary bone marrow disease. Plan: 1. From pathology review no specific therapeutic recommendations. 2. Await serum and urine protein electrophoresis studies, if in M protein is found further work-up would be warranted. 3. There is no data at this time to warrant a bone marrow biopsy, will follow blood counts. 4. Suggest Covid testing and a chest x-ray. Met with patient and his family, impression and plan discussed. Discussed over the phone with Dr. Olivas. Victorino Louise MD Supervisor Finishing Department, [facility] Divisions of Medical Oncology & Hematology Department of Internal Medicine [place] [phone] This note was generated using a voice recognition system software. Although it was reviewed by the author prior to finalization, it may still contain incorrect words, spelling, and punctuation that were not noted when reviewing prior to saving. If a clinically significant typo or inaccurately typed phrase is noted, please notify the author. HPI Consult Data Date of Service:: 12/01/20 PCP / Referring Provider: Dr. Cecil Deutsch DO Attending: Dr. Steve Olivas MD Chief Complaint Chief Complaint: Fever History of Present Illness History of Present Illness: 20-year-old male who presents with a febrile illness and acute kidney injury and noted to have a pancytopenia. He was in his usual state of health until a month earlier when he noted a painful rash on his legs. The rash not itchy, was initially red and tender, later on became scabbed. Over the course of the past week or so he had some fever, malaise, anorexia, nausea, abdominal discomfort. Advanced Directives Power of Retail Service Technician: No Living Will: No PFSH Medical History Former smoker Home Medications NK 11/30/20 [History Last Taken Unknown] Allergy/AdvReac Type Severity Reaction Status Date / Time No Known Allergies Allergy Verified 11/30/20 21:34 Family History (Updated 12/01/20 @ 01:[address] Dinah Wall MD) Father Cancer Leukemia Social History (Updated 12/01/20 @ 01:[address] Dinah Wall MD) Smoking Status: Former smoker details: occasional alcohol substance use type: does not use ROS Constitutional Constitutional: Reports fatigue and fever(s); Denies night sweats, poor appetite or weight loss ENT HEENT: Reports other Details: Had some minor nosebleeds ; Denies dysphagia, hoarseness, loss taste/smell or sore throat Cardiovascular Cardiovascular: Denies chest pain, dyspnea, edema or palpitations Respiratory/Chest Respiratory/Chest: Denies cough, hemoptysis or wheezing Gastrointestinal Gastrointestinal: Reports abdominal pain and nausea; Denies hematochezia, melena or vomiting Genitourinary Genitourinary: Denies change in urinary stream or hematuria Musculoskeletal Musculoskeletal: Denies back pain or joint pain Integumentary Integumentary: Reports changing lesions and other Details: Rash on the anterior aspect of both legs see under HPI Neurologic Neurologic: Reports headache(s); Denies abnormal speech, focal weakness, numbness or other visual disturbances Endocrine Endocrinology: Denies excessive sweating Hematologic/Lymphatic Hematologic/Lymphatic: Denies easy bleeding, easy bruising or lymphadenopathy Physical Exam Narrative ECOG 0 Const alert, oriented x3 and no apparent distress General Appearance: cooperative, comfortable and well developed HEENT normocephalic, moist oral mucous membranes and oropharynx normal Eyes conjunctivae normal and no scleral icterus Neck no lymphadenopathy, supple and no JVD Lymph Lymphatic: no lymphadenopathy noted Chest inspection of chest normal Resp normal respiratory effort and clear to auscultation bilaterally Effort and Inspection: symmetric chest movement Cardio regular rate, regular rhythm and no JVD Heart Sounds: Negative for murmur GI normal to inspection, nondistended, normoactive bowel sounds, soft to palpation, non-tender and no masses Palpation: Negative for hepatomegaly or splenomegaly Bladder / Kidney Exam: no CVA tenderness Extremity no clubbing, cyanosis or edema Skin Skin Narrative: Dry, scabbed multiple bilateral anterior shins lesions Neuro CN's II-XII intact bilaterally, moves all extremities and no focal motor deficits Psych mental status grossly normal Vital Signs Temperature 98.7 F 12/01/20 13:30 Temperature Source Temporal 12/01/20 13:30 Pulse Rate 65 12/01/20 13:30 Pulse Strength Normal (2+) 12/01/20 07:55 Respiratory Rate 18 12/01/20 13:30 Respiratory Effort Non-Labored 12/01/20 14:11 Respiratory Depth Normal 12/01/20 14:11 Respiratory Pattern Normal 12/01/20 14:11 Blood Pressure 124/60 H 12/01/20 13:30 Blood Pressure Mean 81 12/01/20 13:30 Blood Pressure Source Monitor 12/01/20 13:30 Blood Pressure Position Supine 12/01/20 13:30 Blood Pressure Location Right Arm 12/01/20 13:30 Pulse Ox 96 12/01/20 13:30 Oxygen Delivery Method Room Air 12/01/20 14:11 Laboratory Results - last 24 hr 11/30/20 22:15: WBC 3.9 L, RBC 4.16 L, Hgb 12.4 L, Hct 36.1 L, MCV 86.8, MCH 29.8, MCHC 34.3, RDW Std Deviation 38.2, RDW Coeff of Katty 11.9, Plt Count 104 L, MPV 9.5, Immature Gran % (Auto) 0.300, Neut % (Auto) 46.9 L, Lymph % (Auto) 30.0, [place] % (Auto) 18.7 H, Eos % (Auto) 3.6, Baso % (Auto) 0.5, Absolute Neuts (auto) 1.8 L, Absolute Lymphs (auto) 1.17, Nucleated RBC % 0 11/30/20 22:15: Sodium 135 L, Potassium 3.9, Chloride 102, Carbon Dioxide 24.0, Anion Gap 9, BUN 51 H, Creatinine 7.13 H, Estim Creat Clear Calc 17.84, Est GFR (MDRD) Af Amer 12 L, Est GFR (MDRD) Non-Af 10 L, BUN/Creatinine Ratio 7.2 L, Glucose 87, Calcium 8.8, Total Bilirubin 0.50, AST 31, ALT 20, Alkaline Phosphatase 66, Total Protein 6.7, Albumin 3.5, Globulin 3.2, Albumin/Globulin Ratio 1.1 12/01/20 03:00: Urine Color Yellow, Urine Clarity Clear, Urine pH 5.0, Ur Specific [place] 1.030, Urine Protein 500 H, Urine Glucose (UA) Normal, Urine Ketones 5 H, Urine Occult Blood 50 H, Urine Nitrite Negative, Urine Bilirubin 3 H, Urine Urobilinogen 1 H, Ur Leukocyte Esterase 25 H, Urine RBC 10-25 SEEN, Urine WBC 25-50 SEEN, Ur Squamous Epith Cells 0-5 SEEN, Ur Transition Epith Cell 0-5 SEEN, Amorphous Sediment 1+, Urine Bacteria 2+, Hyaline Casts 5-10 SEEN, Urine Mucus 0 SEEN 12/01/20 05:35: WBC 3.4 L, RBC 3.91 L, Hgb 11.5 L, Hct 34.6 L, MCV 88.5, MCH 29.4, MCHC 33.2, RDW Std Deviation 38.3, RDW Coeff of Katty 11.9, Plt Count 85 L, MPV 10.1, Immature Gran % (Auto) 0.300, Neut % (Auto) 49.5, Lymph % (Auto) 28.2, [place] % (Auto) 18.2 H, Eos % (Auto) 3.2, Baso % (Auto) 0.6, Absolute Neuts (auto) 1.7 L, Absolute Lymphs (auto) 0.96, Nucleated RBC % 0, Platelet Estimate MKD 12/01/20 05:35: Sodium 137, Potassium 3.8, Chloride 104, Carbon Dioxide 22.0, Anion Gap 11, BUN 52 H, Creatinine 7.27 H, Estim Creat Clear Calc 17.49, Est GFR (MDRD) Af Amer 12 L, Est GFR (MDRD) Non-Af 10 L, BUN/Creatinine Ratio 7.2 L, Glucose 76, Calcium 7.6 L, Phosphorus 4.3, Total Bilirubin 0.40, AST 31, ALT 22, Alkaline Phosphatase 61, Total Protein 5.8 L, Albumin 3.0 L, Globulin 2.8, Albumin/Globulin Ratio 1.1 12/01/20 05:35: Immature Plt Fraction 2.3, ESR 2, Retic Count 1.04, Immature Retic Fraction 11.90, Retic Hgb Equivalent 31.3 12/01/20 06:30: Ur Random Sodium 28, Urine Creatinine > 900.00 12/01/20 06:30: U Random Total Protein 1093.7 H, Urine Creatinine 890.00, Protein/Creatinin Ratio 1220 H 12/01/20 07:45: PT 14.4, INR 1.2 12/01/20 07:45: Lactate Dehydrogenase 213 12/01/20 07:45: Total Creatine Kinase 65 12/01/20 07:45: APTT 29.8 12/01/20 07:45: Vitamin B12 499 12/01/20 07:45: Iron 25 L, TIBC 219 L, Iron Saturation 11.4 L, Ferritin 126 Laboratory Tests 11/30/20 12/01/20 12/01/20 22:15 05:35 05:35 WBC 3.9 L 3.4 L Hgb 12.4 L 11.5 L Plt Count 104 L 85 L Absolute Neuts (auto) 1.8 L 1.7 L Retic Count 1.04 I personally reviewed patient's peripheral blood smear, the myeloid series shows a left shift, preserved neutrophil count, no blasts seen. The erythroid series is predominantly normocytic normochromic, no schistocytes seen. The platelets are decreased in number but otherwise appeared normal and no giant platelets were seen. Diagnostic Data Renal Ultrasound 12/01/20 00:05 IMPRESSION: 1. No hydronephrosis. Increased echogenicity of the kidneys suggesting medical renal disease. 2. Trace ascites. Electronically Signed: Luis Miguel Luis MD ([facility]) at 8:07 EDT , Service support ,
[2020-12-02] VITALS (23 sets, daily range): BP systolic 134–164; BP diastolic 73–99; PULSE 52–94; RESP 13–25; TEMP 36.3–37.1; O2SAT 92–100; BMI 28.4
[2020-12-02 06:11] LABS: Absolute Lymphocyte Count 1.01 X10^3/uL (0.83-4.51); Absolute Neutrophil Count 1.2 X10^3/uL (2.0-7.7); Basophil# 0.01 X10^3/uL; Basophil% 0.3 % (0-1); Eosinophil# 0.11 X10^3/uL; Eosinophils% 3.7 % (0-5); Hematocrit 32.4 % (40-54); Hemoglobin 11.1 g/dL (13.0-16.5); Lymphocyte # 1.01 X10^3/ul (0.83-4.51); Lymphocyte % 34.4 % (19-41); Mean Corp Hgb Conc 34.3 g/dL (32-36); Mean Corpuscular Hgb 30.3 pg (27.0-32.0); Mean Corpuscular Volume 88.5 fL (80-94); Mean Platelet Vol. 9.9 fl (6.2-12.0); Monocyte# 0.57 X10^3/uL; Monocyte% 19.4 % (0-10); NRBC Flagged by Analyzer 0 % (0-5); Neutrophil # 1.23 X10^3/uL (2.7-7.7); Neutrophil % 41.9 % (47-70); Platelet Count 100 K/mm3 (150-450); RBC Distribution Width CV 12.2 % (11.6-14.6); RBC Distribution Width SD 39.6 fl (35.1-43.9); Red Blood Count 3.66 M/mm3 (4.6-6.2); White Blood Count 2.9 K/mm3 (4.4-11.0)
[2020-12-02 06:52] LABS: AST(SGOT) 30 U/L (15-37); Alanine Aminotransfer ALT/SGPT 23 U/L (16-61); Albumin, Serum 2.8 g/dL (3.2-5.0); Alkaline Phosphatase 58 U/L (45-117); Anion Gap 11 (5-15); BUN 63 mg/dL (7-18); BUN/Creat Ratio 7.9 RATIO (10-20); Bilirubin, Direct 0.05 mg/dL (0.00-0.30); Calcium,Total 8.1 mg/dL (8.5-10.1); Chloride 108 mmol/L (98-107); Creatinine, Serum 7.97 mg/dL (0.70-1.30); EST Glomerular Filtration Rate 9 mL/min (>60); Est Glom Filt Rate - Afr Amer 11 mL/min (>60); Estimated Creatinine Clearance 15.96 ml/min; Globulin 2.8 g/dL (2.2-4.2); Glucose 86 mg/dL (74-106); Protein, Total 5.6 g/dL (6.4-8.2); Sodium Level 138 mmol/L (136-145)
[2020-12-02 09:51] LABS: International Normalized Ratio 1.1; Prothrombin Time (Protime)PT. 13.7 SECONDS (11.7-14.9)
[2020-12-02 09:53] LABS: Haptoglobin 54 mg/dL (17-317)
--- NOTE | 2020-12-02 11:17 | NURSING ---
PT ARRIVES FROM PCU, A&O X3. CONVERSIVE WITH STAFF. LUNGS CTA, DENIES COUGH OR SOB. GENERALIZED EDEMA.
--- NOTE | 2020-12-02 11:20 | KI_PTH ---
PATIENT: ALLEY DUTTA LOC: PCU U#:[id number] AGE/SX: 20/M ROOM: [facility] RE11/30/[address]: Dr. Munira Flores MD : 2000 BED: 1 DIS: 12/05/2020 SPEC #: [id number] RECD: 12/02/20 12:11 STATUS: KAYLEE REQ #: [id number] SHANELL: 12/02/20 11:[address]: Munira Flores DEPT: SURGICAL PATHOLOGY RECD BY: Jackeline Frederick ENTERED: 12/02/20 12:25 SP TYPE: KIDNEY BX OTHR DR: MD Dr. Ruchi Lynn DO Dr. Mansour Isckarus, MD Dr. Nolan Byler, DO Dr. 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 COMMENT Pattern best fits with acute, diffuse intracapillary proliferative glomerulonephritis most consistent with acute proliferative or exudative glomerulonephritis with diffuse proliferation of numerous neutrophils within capillary staci/lumens. No epithelial crescents are seen. No vascular disease or vasculitis is identified. Chronic inflammatory cells are also seen in the base (vascular pole) of all glomeruli; however, the remainder of the tubular interstitium demonstrates only focal/mild edema but is negative for inflammatory infiltrate, tubular damage or tubulitis. All glomeruli demonstrate equal/similar involvement and appearance. Tubulo-interstitium demonstrates mild edema but is otherwise intact. There is no trichrome/collagen fibrosis. Glomerular staci are hypercellular and involvement is global and uniform. There is slight exaggerated lobularity of glomerular staci. The majority of capillary lumina are occluded. Capillary velasco are not thickened (electron microscopy) protein resorption droplets are identified in proximal tubular epithelial cells cytoplasm sparse subendothelial, mesangial and intramembranous electron dense deposits are seen. These are irregular, small and sparse. Only rare electron dense subepithelial deposits are noted. Pattern best fits with acute proliferative/exudative glomerulonephritis as would be seen in postinfectious glomerulonephritis. This pattern may be seen with numerous infections (beta-hemolytic streptococci most frequently) as well as staphylococci, Gram-negative bacilli, syphilis and others. Infections with other organisms (including viruses) may also be associated with similar changes but less exudative inflammatory infiltrate (as seen in this case). Clinical correlation and correlation with serologic studies (e.g. ASO titers) may be helpful and are essential in this case/patient. MICROSCOPIC DESCRIPTION LIGHT MICROSCOPY: Good biopsy specimen consisting predominantly of renal cortex and up to 36 glomeruli are portions of glomeruli for histologic evaluation. All glomeruli demonstrate multifocal occluded capillary loops with acute inflammatory cells. Slight lobulation is seen in some glomeruli. No open capillary loops are present in the majority of glomeruli. All glomeruli demonstrate acute inflammatory cells within glomerulus as well as surrounding chronic inflammatory cells in the regions just outside vascular pole. The remainder of the tubular interstitium is otherwise unremarkable. No acute/active tubulitis is seen. No epithelial crescents are ween within glomeruli. Vasculature is otherwise unremarkable. No areas of glomerular sclerosis or necrosis are seen. Intracapillary hypercellularity demonstrates predominantly acute (circulating) inflammatory cells with admixed endothelial in mesangial cells filling all glomerular capillary lumina and demonstrating a slight accentuation of lobularity to glomerulus. PAS stain highlights the absence of open glomerular capillary loops and the presence of occluding inflammation (predominantly acute inflammation) in the majority of loops in the majority of glomeruli. No epithelial crescents are seen. Moderate protein/tubular resorption droplets are seen in moderate numbers of proximal tubular epithelial cell cytoplasm. No areas of acute/active tubulitis is seen. Vasculature is otherwise unremarkable. Diaz (silver) stain highlights predominantly absent patient glomerular capillary loops and increase mesangial and capillary loops cellularity without areas of ?breaks,? ?splits,? or irregular luminal outlines. No double-contour basemen membranes are seen. Normal thickness basement membranes are identified. Vasculature is otherwise unremarkable. No epithelial crescents are seen without glomeruli. Trichrome stain highlights increase glomerular hypercellularity and is negative for marked interstitial fibrosis. No glomerular sclerosis or interstitial fibrosis is identified. Few mesangial-based fuchsinophilic deposits are identified. Vasculature is otherwise unremarkable. Chronic inflammatory cells are seen at vascular pole of most glomeruli. No epithelial crescents are identified. No vasculitis is seen. IMMUNOFLUORESCENCE: Tissue submitted for immunofluorescence microscopy demonstrates renal cortex and medulla and up to 6 glomeruli or portions of glomeruli for histologic evaluation. No areas of glomerular sclerosis are seen. All glomeruli demonstrate increased cellularity as well as only rare/focal open capillary loops. IgG and C3 demonstrate fine granular mesangial pattern of staining in all glomeruli, but are negative in vascular structures and tubulointerstitium. IgA, IgM, C1q, fibrin and albumin are negative in glomeruli, tubules and vascular structures. ELECTRON MICROSCOPY: Toluidine blue-stained sections (thick/?sheep or calf grader? sections) reveal 5 glomeruli or portions of glomeruli for histologic evaluation. All glomeruli demonstrate hypercellularity, increased inflammatory cells, are negative for crescent formation, and demonstrate occluded capillary lumens with inflammatory cells in addition to chronic inflammatory cells in interstitium adjacent to vascular pole. Tubules are otherwise unremarkable. Mild edematous tubular interstitium is seen. Vasculature is otherwise unremarkable. Ultrastructure examination demonstrates markedly hypercellular glomeruli with capillary lumens occluded by predominantly acute inflammatory cells and with increase mesangial-based acute inflammatory cells. No double contour basement membranes are seen. No linear dense deposits are identified. Uniform foot process simplification/effacement is seen with marked microvillous transformation of all podocytes identified. Admixture of chronic inflammatory cells is also seen. Few subepithelial dense deposits are identified scattered throughout all glomeruli evaluated. Few small, irregular electron dense deposits are identified in subendothelial location as well as without basement membrane in subendothelial location. The amount of electron-dense deposits is mild/focal throughout all glomeruli. Interstitium demonstrates edema and tubular epithelial cells are otherwise unremarkable. GROSS DESCRIPTION The specimen is sent entirely to [facility] for diagnosis. Received in transport media labeled with the patient?s name and designated ?right kidney biopsy,? the specimen consists of three core biopsies of pagan to pagan-yellow renal parenchyma that vary in length from 1 to 1.8 cm. Roofing Contractor section is submitted for immunofluorescence microscopy. Roofing Contractor section is submitted for electron microscopy. The remainder of the specimen is entirely submitted as A1.
--- NOTE | 2020-12-02 11:20 | PCM.CONS.GEN ---
Assessment & Plan Assessment/Plan (1) Acute kidney injury: PLAN: I have been consulted in conjunction with Dr. Sanderson. Patient's creatinine continues to increase steadily. Dr. Sanderson will plan to perform a right possible left chest tunneled dialysis catheter placement. Procedure details, risks and benefits have been explained to the patient and his father. They are agreeable to the current plan. Patient's father is feeling anxious and helpless and I had spent a good amount of time answering questions and explaining. Patient verbally understands and agrees with the plan. Patient has had a COVID negative test. Thank you for allowing us to participate in this patient's care. HPI Consult Data Date of Consult: 12/02/20 HPI Narrative HPI Narrative: ALLEY DUTTA, is a 20 M who presents with a approximate 2 week history of bilateral lower extremity abscesses/wounds. Patient is unsure what he may have come in contact with to create these wounds. He was evaluated by urgent care in [place] who was unsure what may have caused the wounds. He was told he had COVID. However he does not currently have shortness of breath or cough. Patient's father stated last /Tuesday, patient became nauseated, vomiting and feeling ill. Patient noted within the last 2-3 days his urine was dark. He noted loss of appetite. He denies previous kidney issues. He takes no known home medications. He denies cardiac and pulmonary history. He denies previous surgical history. Patient's father has a history of leukemia and was treated at [facility] in [place]. Patient has never had dialysis previous. [facility] Medical History Former smoker Home Medications NK 11/30/20 [History Last Taken Unknown] Allergy/AdvReac Type Severity Reaction Status Date / Time No Known Allergies Allergy Verified 11/30/20 21:34 Family History (Updated 12/01/20 @ 01:[address] Dinah Wall MD) Father Cancer Leukemia Social History (Updated 12/01/20 @ 01:[address] Dinah Wall MD) Smoking Status: Former smoker details: occasional alcohol substance use type: does not use ROS Constitutional Constitutional: Reports anorexia, fever(s), poor appetite and weight loss Eyes Eyes: Reports systems reviewed and no addt'l complaints, except as documented ENT HEENT: Reports systems reviewed and no addt'l complaints, except as documented Cardiovascular Cardiovascular: Reports systems reviewed and no addt'l complaints, except as documented Respiratory/Chest Respiratory/Chest: Reports systems reviewed and no addt'l complaints, except as documented Gastrointestinal Gastrointestinal: Reports systems reviewed and no addt'l complaints, except as documented Genitourinary Genitourinary: Reports systems reviewed and no addt'l complaints, except as documented Musculoskeletal Musculoskeletal: Reports systems reviewed and no addt'l complaints, except as documented Integumentary Integumentary: Reports systems reviewed and no addt'l complaints, except as documented Neurologic Neurologic: Reports systems reviewed and no addt'l complaints, except as documented Psychiatric Psychiatric: Reports systems reviewed and no addt'l complaints, except as documented Endocrine Endocrinology: Reports systems reviewed and no addt'l complaints, except as documented Hematologic/Lymphatic Hematologic/Lymphatic: Reports systems reviewed and no addt'l complaints, except as documented Allergic/Immunologic Allergic/Immunologic: Reports systems reviewed and no addt'l complaints, except as documented Physical Exam Const alert, oriented x3 and no apparent distress HEENT normocephalic Eyes PERRL and EOMs intact bilaterally Neck full ROM Lymph Lymphatic: no lymphadenopathy noted Chest inspection of chest normal Resp normal respiratory effort and normal air movement Cardio regular rate and regular rhythm GI normal to inspection, nondistended, normoactive bowel sounds no CVA tenderness Back/Spine no CVA tenderness Extremity Extremity Narrative: Multiple small abscesses/wounds bilateral lower extremity noted Skin no rashes or lesions noted Neuro oriented x3 and CN's II-XII intact bilaterally Psych mental status grossly normal Medical Records Data Medical Nutrition Assessment Dietitian: Nutrition Therapy Diagnosis Start: 12/01/20 11:26 Freq: Status: Active Protocol: Document 12/01/20 16:44 RMA (Rec: 12/01/20 16:44 RMA [id number]) Nutrition Malnutrition Evidence of Malnutrition Exists No Intake Problem Inadequate Oral Intake Etiology related to decreased appetite/ acute illness Signs/Symptoms as evidenced by refusal of meals today and poor intake meeting less than 50% estimated nutrition needs 3 days prior to admit. Status Active Problem Recommendation Dietitian Recommendations/Changes Will liberalize and change diet to low sodium especially given poor oral intake/refusal of meals. Will try 120ml Nepro TID w/ meals as tolerated. Encouraged ordering meals and taking as much as he can tolerate--pt seems agreeable. Will provide diet education as needed prior to d/c. Lab / Micro Data Result Diagrams: 12/02/20 05:36 12/02/20 05:36 Labs: Laboratory Results - last 24 hr 12/01/20 05:35: Immature Plt Fraction 2.3, ESR 2, Retic Count 1.04, Immature Retic Fraction 11.90, Retic Hgb Equivalent 31.3 12/01/20 07:45: Haptoglobin 54 12/02/20 05:36: Sodium 138, Potassium 4.0, Chloride 108 H, Carbon Dioxide 19.0 L, Anion Gap 11, BUN 63 H, Creatinine 7.97 H*, Estim Creat Clear Calc 15.96, Est GFR (MDRD) Af Amer 11 L, Est GFR (MDRD) Non-Af 9 L, BUN/Creatinine Ratio 7.9 L, Glucose 86, Calcium 8.1 L, Total Bilirubin 0.20, Direct Bilirubin 0.05, AST 30, ALT 23, Alkaline Phosphatase 58, Total Protein 5.6 L, Albumin 2.8 L, Globulin 2.8, Albumin/Globulin Ratio 1.0 12/02/20 05:36: WBC 2.9 L, RBC 3.66 L, Hgb 11.1 L, Hct 32.4 L, MCV 88.5, MCH 30.3, MCHC 34.3, RDW Std Deviation 39.6, RDW Coeff of Katty 12.2, Plt Count 100 L, MPV 9.9, Immature Gran % (Auto) 0.300, Neut % (Auto) 41.9 L, Lymph % (Auto) 34.4, Edmunds % (Auto) 19.4 H, Eos % (Auto) 3.7, Baso % (Auto) 0.3, Absolute Neuts (auto) 1.2 L, Absolute Lymphs (auto) 1.01, Nucleated RBC % 0 12/02/20 05:36: PT 13.7, INR 1.1 Micro: Microbiology 12/01/20 16:30 Mucosa - Nose SARS-CoV-2 Antigen (Rapid) - Final Charges/Coding Visit Charges Office Visits / Consults: [id number] IP Consult L3
[2020-12-02] MEDS: Midazolam 2 MG/2 ML Syringe IV (11:27)
[2020-12-02] MEDS: fentaNYL 100 MCG/2 ML Ampul IV (11:27)
[2020-12-02 11:31] LABS: 24 Hour Urine Protein 1382.5 mg/24HR (<150 MG/24HR); 24HR. UA Prot. Total Volume 175 mL
[2020-12-02] MEDS: Lidocaine 2% (20 ml mdv) 20 ML Vial INFILT (11:34)
[2020-12-02 11:39] LABS: Creat.Clear Total Volume 175 mL; Creatinine Clearance 12 ml/min (100-200); EST Glomerular Filtration Rate 9 mL/min (>60); Est Glom Filt Rate - Afr Amer 11 mL/min (>60)
--- NOTE | 2020-12-02 12:02 | PN.RENAL_ITS ---
Subjective Subjective poor appetite, complains of weakness, shortness of breath, bloating with iv fluids. Poor urine output with rising creatinine. Discussed initiating dialysis with kidney biopsy. 24h urine CRCL 12 with 1.4g protein. Objective Data Objective Data Vital Signs: Vital Signs Temp Pulse Resp BP Pulse Ox 97.4 F L 62 15 146/73 H 99 12/02/20 10:27 12/02/20 11:27 12/02/20 11:27 12/02/20 11:27 12/02/20 11:06 Oxygen Flow Rate (L/min) [4] 2 Oxygen Flow Rate (L/min) [3] 2 Oxygen Flow Rate (L/min) [2] 2 Oxygen Flow Rate (L/min) [1 ( 2 Initial Baseline)] Oxygen Delivery Method [4] Nasal Cannula Oxygen Delivery Method [3] Nasal Cannula Oxygen Delivery Method [2] Nasal Cannula Oxygen Delivery Method [1 ( Nasal Cannula Initial Baseline)] Oxygen Delivery Method Room Air Weight: 95.2 kg Body Mass Index (BMI) 28.4 Intake & Output: Intake and Output for Last 24 Hours 11/30/20 12/01/20 12/02/20 23:59 23:59 23:59 Intake Total 1000 / 1000 6017.49 / 6377.49 996.67 / 996.67 Output Total 207 / 232 175 / 175 Balance 1000 / 1000 5810.49 / 6145.49 821.67 / 821.67 Medical Nutrition Assessment Dietitian: Nutrition Therapy Diagnosis Start: 12/01/20 11:26 Freq: Status: Active Protocol: Document 12/01/20 16:44 RMA (Rec: 12/01/20 16:44 RMA [id number]) Nutrition Malnutrition Evidence of Malnutrition Exists No Intake Problem Inadequate Oral Intake Etiology related to decreased appetite/ acute illness Signs/Symptoms as evidenced by refusal of meals today and poor intake meeting less than 50% estimated nutrition needs 3 days prior to admit. Status Active Problem Recommendation Dietitian Recommendations/Changes Will liberalize and change diet to low sodium especially given poor oral intake/refusal of meals. Will try 120ml Nepro TID w/ meals as tolerated. Encouraged ordering meals and taking as much as he can tolerate--pt seems agreeable. Will provide diet education as needed prior to d/c. Lab / Micro Data Result Diagrams: 12/02/20 05:36 12/02/20 10:55 Labs: Laboratory Results - last 24 hr 12/01/20 07:45: Haptoglobin 54 12/02/20 05:36: Sodium 138, Potassium 4.0, Chloride 108 H, Carbon Dioxide 19.0 L , Anion Gap 11, BUN 63 H, Creatinine 7.97 H*, Estim Creat Clear Calc 15.96, Est GFR (MDRD) Af Amer 11 L, Est GFR (MDRD) Non-Af 9 L, BUN/Creatinine Ratio 7.9 L, Glucose 86, Calcium 8.1 L, Total Bilirubin 0.20, Direct Bilirubin 0.05, AST 30, ALT 23, Alkaline Phosphatase 58, Total Protein 5.6 L, Albumin 2.8 L, Globulin 2.8, Albumin/Globulin Ratio 1.0 12/02/20 05:36: WBC 2.9 L, RBC 3.66 L, Hgb 11.1 L, Hct 32.4 L, MCV 88.5, MCH 30.3, MCHC 34.3, RDW Std Deviation 39.6, RDW Coeff of Katty 12.2, Plt Count 100 L, MPV 9.9, Immature Gran % (Auto) 0.300, Neut % (Auto) 41.9 L, Lymph % (Auto) 34 .4, Andrews % (Auto) 19.4 H, Eos % (Auto) 3.7, Baso % (Auto) 0.3, Absolute Neuts (auto) 1.2 L, Absolute Lymphs (auto) 1.01, Nucleated RBC % 0 12/02/20 05:36: PT 13.7, INR 1.1 12/02/20 10:55: Urine Collection Time 24.0, Timed Urine Volume 175, Ur Total Protein 24 Hr 1382.5 H, Urine Total Protein 790.0 H 12/02/20 10:55: Creatinine 8.0 H*, Est GFR (MDRD) Af Amer 11 L, Est GFR (MDRD) N on-Af 9 L, Urine Collection Time 24.0, Timed Urine Volume 175, Urine Creatinine 783.0, Creatinine Clearance 12 L Micro: Microbiology 12/01/20 16:30 Mucosa - Nose SARS-CoV-2 Antigen (Rapid) - Final Physical Exam Const oriented x3 and no apparent distress Eyes PERRL Cardio regular rate GI non-tender and non-distended Auscultation: normoactive bowel sounds Palpation: soft Skin Skin Narrative: scabbed punctated lesions on legs unchanged. Neuro Sensorium / Orientation: awake Motor Exam: no tremor Psych cooperative Assessment & Plan Assessment/Plan (1) Acute kidney injury: PLAN: creatinine rising with poor urine output despite iv fluids. Complains of shortness of breath. Will stop iv fluids and initiate dialysis. Discussed pursuing kidney biopsy to determine cause of renal failure. Serologies pending. Discussed risk of bleeding from biopsy. 24h urine CRCL 12, TP 1.4g. (2) Bilateral leg ulcer: PLAN: dry wounds bilateral LE (3) Pancytopenia: PLAN: f/u with hematology. FH for leukemia. protein electrophoresis pending (4) Proteinuria: PLAN: 24h urine protein 1.4g, await serologies, pursue kidney biopsy
[2020-12-02] MEDS: Heparin 10,000 UNITS/10 ML Vial 10000 UNITS (12:54)
--- NOTE | 2020-12-02 13:00 | CT_ITS ---
PROCEDURE: CT GUIDED PERCUTANEOUS KIDNEY BIOPSY. DATE: 12/02/2020. INDICATION: Male, 20 years old. Acute renal failure. PHYSICIAN: Fazal Acosta M.D. MEDICATIONS: 2 mg of VERSED and 50 mcg of FENTANYL intravenously. Conscious sedation was started 11:27 AM and terminated at 11:43 AM. The patient was independently monitored by the department nurse. ACCESS SITE: Lower pole of the right kidney. NEEDLE: 18-gauge core biopsy needle. SPECIMEN: For specimen. EBL: None. COMPLICATIONS: None immediate. RADIATION DOSAGE (If Supplied By Facility): CTDIvol = ( 15.5 ) mGy, DLP = ( 270.81 ) mGycm. Individualized dose optimization techniques were utilized. The risks, benefits, and alternatives to the procedure and sedation were explained to the patient. The specific risk of hemorrhage requiring further treatment or intervention was detailed and accepted. Written informed consent was obtained. The patient was placed on the CT table in the prone position. Multiple axial images were obtained from the lung base through the caudal extent of the kidneys. An appropriate entry site was identified and a marilynn made on the skin. The skin overlying the [ right lower] posterior flank was prepped and draped in sterile fashion. 1% lidocaine was administered subcutaneously for local anesthesia. Initially, a 22 gauge needle was advanced and CT images confirmed good needle position. The 22 gauge needle was then exchanged for an 17 gauge introducer needle which was advanced. Repeat CT images confirmed good needle trajectory and tip position. The introducer needle was then advanced into the periphery of the inferior renal pole, and CT images were again obtained to confirm exact tip location. The inner stylet of the introducer needle was then removed and an 18 gauge coaxial needle was advanced thru the introducer needle and biopsy performed. A total of [4 ] passes were performed and the specimen collected was sent to Pathology for further evaluation. The needle was withdrawn. Hemostasis was achieved with manual compression and a sterile dressing was applied. Repeat CT images of the biopsy area was performed which demonstrated no gross bleeding or hematoma. The patient tolerated the procedure well without immediate complications. The patient was transported to the [floor/recovery area] in stable condition. CT/Biopsy/Inj or Needle Placement IMPRESSION: Successful CT guided percutaneous kidney biopsy. Conscious sedation protocol was followed. Electronically Signed: Fazal Acosta MD at 12:54 EDT , Service support ,
--- NOTE | 2020-12-02 13:22 | PN.HOSP_ITS ---
Subjective Subjective Patient seen and examined. He complained of feeling short of breath. He has had minimal urine output, despite receiving fluids. He complained of feeling swollen up. He was in positive fluid balance by 7.6L. Review of systems was otherwise negative. I discussed with patient about needing dialysis due to worsening k idney function, as Cr had trended up to 7.9, and BUN was up to 63. Patient was agreeable to dialysis. Objective Data Objective Data Vital Signs: Vital Signs Temp Pulse Resp BP Pulse Ox 97.4 F L 59 L 18 149/79 H 95 12/02/20 10:27 12/02/20 12:13 12/02/20 12:13 12/02/20 12:13 12/02/20 12:13 Oxygen Flow Rate (L/min) [4] 2 Oxygen Flow Rate (L/min) [3] 2 Oxygen Flow Rate (L/min) [2] 2 Oxygen Flow Rate (L/min) [1 ( 2 Initial Baseline)] Oxygen Delivery Method [4] Nasal Cannula Oxygen Delivery Method [3] Nasal Cannula Oxygen Delivery Method [2] Nasal Cannula Oxygen Delivery Method [1 ( Nasal Cannula Initial Baseline)] Oxygen Delivery Method Room Air Weight: 209 lb 14.081 oz Body Mass Index (BMI) 28.4 Intake & Output: Intake and Output for Last 24 Hours 11/30/20 12/01/20 12/02/20 23:59 23:59 23:59 Intake Total 1000 / 1000 6017.49 / 6377.49 996.67 / 996.67 Output Total 207 / 232 175 / 175 Balance 1000 / 1000 5810.49 / 6145.49 821.67 / 821.67 Medical Nutrition Assessment Dietitian: Nutrition Therapy Diagnosis Start: 12/01/20 11:26 Freq: Status: Active Protocol: Document 12/01/20 16:44 RMA (Rec: 12/01/20 16:44 RMA [id number]) Nutrition Malnutrition Evidence of Malnutrition Exists No Intake Problem Inadequate Oral Intake Etiology related to decreased appetite/ acute illness Signs/Symptoms as evidenced by refusal of meals today and poor intake meeting less than 50% estimated nutrition needs 3 days prior to admit. Status Active Problem Recommendation Dietitian Recommendations/Changes Will liberalize and change diet to low sodium especially given poor oral intake/refusal of meals. Will try 120ml Nepro TID w/ meals as tolerated. Encouraged ordering meals and taking as much as he can tolerate--pt seems agreeable. Will provide diet education as needed prior to d/c. Lab / Micro Data Result Diagrams: 12/02/20 05:36 12/02/20 10:55 Labs: Laboratory Results - last 24 hr 12/01/20 07:45: Haptoglobin 54 12/02/20 05:36: Sodium 138, Potassium 4.0, Chloride 108 H, Carbon Dioxide 19.0 L , Anion Gap 11, BUN 63 H, Creatinine 7.97 H*, Estim Creat Clear Calc 15.96, Est GFR (MDRD) Af Amer 11 L, Est GFR (MDRD) Non-Af 9 L, BUN/Creatinine Ratio 7.9 L, Glucose 86, Calcium 8.1 L, Total Bilirubin 0.20, Direct Bilirubin 0.05, AST 30, ALT 23, Alkaline Phosphatase 58, Total Protein 5.6 L, Albumin 2.8 L, Globulin 2.8, Albumin/Globulin Ratio 1.0 12/02/20 05:36: Hepatitis A Interp Cancelled, Hep Bs Ag Confirmation Cancelled, Hep B Surface Ag Comm Cancelled, Hep Bs Antibody Interp Cancelled, Hep B Core Total Ab Cancelled, Hepatitis C Antibody Cancelled, Hep C Ab Comment Cancelled 12/02/20 05:36: WBC 2.9 L, RBC 3.66 L, Hgb 11.1 L, Hct 32.4 L, MCV 88.5, MCH 30.3, MCHC 34.3, RDW Std Deviation 39.6, RDW Coeff of Katty 12.2, Plt Count 100 L, MPV 9.9, Immature Gran % (Auto) 0.300, Neut % (Auto) 41.9 L, Lymph % (Auto) 34.4, [place] % (Auto) 19.4 H, Eos % (Auto) 3.7, Baso % (Auto) 0.3, Absolute Neuts (auto) 1.2 L, Absolute Lymphs (auto) 1.01, Nucleated RBC % 0 12/02/20 05:36: PT 13.7, INR 1.1 12/02/20 10:55: Urine Collection Time 24.0, Timed Urine Volume 175, Ur Total Protein 24 Hr 1382.5 H, Urine Total Protein 790.0 H 12/02/20 10:55: Creatinine 8.0 H*, Est GFR (MDRD) Af Amer 11 L, Est GFR (MDRD) Non-Af 9 L, Urine Collection Time 24.0, Timed Urine Volume 175, Urine Creatinine 783.0, Creatinine Clearance 12 L Micro: Microbiology 12/01/20 16:30 Mucosa - Nose SARS-CoV-2 Antigen (Rapid) - Final Radiography Diagnostic Testing: Radiology Impression Biopsy CT 12/02/20 13:00 IMPRESSION: Successful CT guided percutaneous kidney biopsy. Conscious sedation protocol was followed. Electronically Signed: Fazal Acosta MD at 12:54 EDT , Service support , Physical Exam Const alert, oriented x3 and no apparent distress Exam Limitations: no limitations HEENT head/scalp atraumatic and moist oral mucous membranes Head and Scalp: normocephalic Eyes PERRL, EOMs intact bilaterally and conjunctivae normal Neck no lymphadenopathy, supple and no JVD Resp normal respiratory effort Cardio regular rate, regular rhythm, S1 normal heart sound, S2 normal heart sound and no murmurs GI normal to inspection, nondistended, normoactive bowel sounds, soft to palpation, non-tender and non-distended Extremity normal to inspection, full ROM and no clubbing, cyanosis or edema Peripheral Pulses: Yes pulses 2+ throughout Skin no rashes or lesions noted Neuro oriented x3 and CN's II-XII intact bilaterally Sensorium / Orientation: awake and alert Psych affect normal Assessment & Plan Assessment/Plan (1) Acute kidney injury: (2) Pancytopenia: PLAN: Acute kidney injury * etiology is unclear * nephrology on board * Cr has trended upwards today, and was up to 8; BUN is up to 63 * kidney biopsy ordered today; general surgery consulted for tunneled dialysis catheter placement * 24 hour urine collection per nephrology * renal USG showed * autoimmune serologies pending. * patient also complaining of shortness of breath today which is likely due to fluid overload from [place]; gained ~ 12 kg since admission * #Non anion gap metabolic acidosis * likely due to acute kidney injury * nephrology on board * #Pancytopenia * hematology on board; thought pancytopenia was due to acute viral illness, and no a primary bone marrrow disease * hematology recommended serum and urine protein electrophoresis, and conservative management for now. * # Bilaeral LE ulcerations * has resolving superficial scabs on lower extremities * per family, patient was recently in [facility] and was likely exposed to a lot of mosquitoes, so resolving scabs may be as a result of resolving mosquito bites. * * DVT prophylaxis: SCDs Charges/Coding Visit Charges Inpatient E&M: 04377 Subs Hosp L3
--- NOTE | 2020-12-02 13:35 | EX.PCM.DISCH ---
Discharge Instructions Procedure Breast Surgery Diet Discharge Diet: No restrictions Activity Discharge Activity: May Not Drive (for 2-3 days or while taking narcotic pain meds.) May shower in (days): 1 Lifting Restrictions: 10 pounds for 1 week. Dressing / Incision Call your doctor if your incision/area has: Continuous Slow Oozing, Sudden Increased Bleeding, Increased Pain/ Swelling and Increased Redness Call your doctor if you observe: Fever of 101 or Higher Suture Line Care: Avoid Pulling/Pushing Remove Dressing in: 1 day Additional Dressing/Incision Instructions:: Remove bulky dressing tomorrow. May leave any op-site dressing for 3-4 days. Keep dressing in place until your follow-up appointment. Follow Up Care Please Follow Up With: Kathryn Sanderson MD When: Please call [phone] for an appointment to be seen in 2 week. Test Results: Test results from this visit will be discussed in further detail at your follow-up appointment, if applicable. Discharge Plan Admission Admit Date/Time: 11/30/20 23:48 Attending Provider: Munira Flores Primary Care Provider: Cecil Deutsch Consulting Providers: Ruchi Junior ; Victorino Louise ; Kathryn Sanderson Discharge Orders/Prescriptions Prescriptions: No Action NK RF: 0 Referrals / Follow Up: Cecil Deutsch DO [Primary Care Provider] -
[2020-12-02] MEDS: Cefazolin 1 GM/50 ML BAG IV ×2 (13:52→21:53)
[2020-12-02] MEDS: Lidocaine 1% /Epi 1:100 (20ml) 20 ML Vial (13:56)
[2020-12-02] MEDS: Bupivacaine Mpf 0.5% 30 ML VIAL (13:56)
--- NOTE | 2020-12-02 14:30 | PCM.OPRPT ---
Report of Operation Date of Procedure: 12/02/20 Pre-Operative Diagnosis: Acute kidney injury need for dialysis access Post-Operative Diagnosis: Same Surgery/Procedure Performed:: 1. Placement of right tunneled IJ tunneled dialysis catheter 2. Use of fluoroscopy 3. Use of ultrasound Surgeon: Kathryn Sanderson Type of Anesthesia: Local MAC Anesthesiologist: Quentin Gallagher Special Medications: Ancef 2 g IV x1 Specimen's removed: None Estimated Blood Loss (mL): < 10 cc Description of Procedure: After informed consent was given, the patient was brought to the operating room and placed in the supine position. Appropriate time out protocol was followed. He was then given IV conscious sedation for anesthesia. The patient's right upper chest and neck were then prepped with a surgical skin preparation and sterile surgical drapes were placed. After proper landmarks were ascertained, the skin at the upper right chest area was then infiltrated with 1:1 mixture of 1% lidocaine with epinephrine and 0.5% maricaine. A needle trocar was then inserted into the right internal jugular vein with ultrasound guidance-multiple vessels were viewed with u/s and the right IJ was chosen-- and there was good aspiration of venous blood. A wire was then threaded into the needle trocar and this was visualized under fluoroscopy to ensure that the wire was in the superior vena cava. Once this was done, then the needle trocar was removed. A small incision was made with an 11 blade knife at the wire entrance site. The dilator x2 with the introducer sheath attached was then placed over the wire into the right internal jugular vein via the Seldinger technique and this was visualized under fluoroscopy. Next the introducer and sheath were in proper position as visualized by fluoroscopy. The location of the cuffed was estimated on the skin, an incision was made with a 15 blade scalpel. The 14.5 Fr x19 cm Palindrome dual lumen (Lot [id number] reference [id number]) was tunneled from the chest incision to the right neck incision. The sheath was removed. The catheter was placed through the introducer and was positioned with its tip at the junction of the superior vena cava and the right atrium as visualized under fluoroscopy. The cuff of the catheter was in the subcutaneous tissue. The catheter flushed and neetu well with saline. Catheter was also flushed with 1.6 cc of 1-10,000 of heparin. Hemostasis was assured. Silver dressing was placed at the catheter exit site. Catheter was sutured with 3-0 nylon sutures. The neck incision was sutured with interrupted 3-0 Vicryl interrupted sutures x2 and Steri-Strips were placed. A large OpSite was placed over the catheter site and a small OpSite over the neck incision. The patient tolerated the procedure well. Grafts/Implants Used: 14.5 Fr x19 cm Palindrome dual lumen (Lot [id number] reference [id number]) Complications none
--- NOTE | 2020-12-02 14:45 | RAD_ITS ---
HISTORY: dialysis catheter -- pacu -portable. TECHNIQUE: XR Chest 1 View. EXAM TIME: 2020-12-02 14:35. # of images incl. paperwork: 1. COMPARISON:CT 12/01/2020. FINDINGS: LINES/DEVICES: Double lumen right internal jugular central venous catheter tip at the junction of the superior vena cava and right atrium. CARDIOMEDIASTINAL BORDERS: Stable. LUNGS: Mild right basilar atelectasis again seen. PLEURA: Trace right pleural effusion without pneumothorax. RAD/CXR for Line Placement IMPRESSION: Satisfactory appearance of central venous catheter. at 1536 Reported and signed by: Selma Henderson MD Electronically Signed: Selma Henderson MD at 15:35 EDT Tel , Service support ,
[2020-12-02 15:25] LABS: ANTINUCLEAR ANTIBODIES DIRECT Negative (Negative)
[2020-12-02 15:25] LABS: Hepatitis B Surface Antibody Non-Reactive
[2020-12-02] MEDS: 0.9% Saline Lock 10 ML Syringe IV ×3 (15:31→23:29)
[2020-12-02 16:09] LABS: Albumin 2.9 g/dL (2.9-4.4); Alpha-1-Globulins 0.3 g/dL (0.0-0.4); Alpha-2-Globulins 0.5 g/dL (0.4-1.0); Cytoplasmic Ab (C-ANCA) <1:20 titer (Neg:<1:20); Free Kappa Light Chains 90.7 mg/L (3.3-19.4); Free Lambda Light Chains 38.9 mg/L (5.7-26.3); Immunoglobulin G 990 mg/dL (603-1613); Immunoglobulin M 66 mg/dL (20-172); PROEL- TOTAL PROTEIN 5.3 g/dL (6.0-8.5)
[2020-12-02 17:27] LABS: Immunoglobulin A 26 mg/dL (90-386); Perinuclear Ab (P-ANCA) <1:20 titer (Neg:<1:20)
--- NOTE | 2020-12-02 21:55 | DIALYSIS ---
Hemodialysis completed first treatment, 2 hours on a 3 K bath. No fluid removed. Patient tolerated well. Next treatment most likely tomorrow or per Nephrology.
[2020-12-02] MEDS: Ondansetron 4 MG/2 ML Vial IV (23:27)
[2020-12-03] VITALS (15 sets, daily range): BP systolic 101–154; BP diastolic 56–93; PULSE 57–88; RESP 16–18; TEMP 36.4–37.6; O2SAT 86–98
--- NOTE | 2020-12-03 02:11 | NURSING ---
Dr. Olivas made aware of patient c/o not being able to swallow and feeling like airway to throat closing. Assessed patient throat area tongue covering airway. VS 150/77, RR 18, Temp 99.4 oral, SpO2 98% RA. Patient states, has been feeling like this since 7 pm first time patient told this nurse. Dr. Olivas gave a order for speak to evaluate tomorrow.
[2020-12-03 06:00] LABS: Absolute Lymphocyte Count 0.92 X10^3/uL (0.83-4.51); Absolute Neutrophil Count 2.7 X10^3/uL (2.0-7.7); Basophil# 0.02 X10^3/uL; Basophil% 0.4 % (0-1); Eosinophil# 0.11 X10^3/uL; Eosinophils% 2.5 % (0-5); Hematocrit 31.9 % (40-54); Hemoglobin 10.9 g/dL (13.0-16.5); Lymphocyte # 0.92 X10^3/ul (0.83-4.51); Lymphocyte % 20.6 % (19-41); Mean Corp Hgb Conc 34.2 g/dL (32-36); Mean Corpuscular Hgb 29.6 pg (27.0-32.0); Mean Corpuscular Volume 86.7 fL (80-94); Mean Platelet Vol. 9.6 fl (6.2-12.0); Monocyte# 0.72 X10^3/uL; Monocyte% 16.1 % (0-10); NRBC Flagged by Analyzer 0 % (0-5); Neutrophil # 2.69 X10^3/uL (2.7-7.7); Neutrophil % 60.2 % (47-70); Platelet Count 121 K/mm3 (150-450); RBC Distribution Width CV 11.9 % (11.6-14.6); RBC Distribution Width SD 38.3 fl (35.1-43.9); Red Blood Count 3.68 M/mm3 (4.6-6.2); White Blood Count 4.5 K/mm3 (4.4-11.0)
[2020-12-03 06:07] LABS: HEPATITIS B SURFACE AG Negative (Negative); Hepatitis A IgM Antibody Negative (Negative); Hepatitis B Core AB IgM Negative (Negative)
[2020-12-03 06:42] LABS: Anion Gap 12 (5-15); BUN 58 mg/dL (7-18); BUN/Creat Ratio 8.5 RATIO (10-20); Calcium,Total 7.9 mg/dL (8.5-10.1); Chloride 105 mmol/L (98-107); Creatinine, Serum 6.83 mg/dL (0.70-1.30); EST Glomerular Filtration Rate 11 mL/min (>60); Est Glom Filt Rate - Afr Amer 13 mL/min (>60); Estimated Creatinine Clearance 18.62 ml/min; Glucose 82 mg/dL (74-106); Potassium 3.9 mmol/L (3.5-5.1); Sodium Level 137 mmol/L (136-145)
[2020-12-03 08:13] LABS: Lyme Ab Screen Interpretation REF LAB
[2020-12-03] MEDS: 0.9% Normal Saline 1,000 ML 75 ML IV ×2 (09:41→23:55)
[2020-12-03] MEDS: Cefazolin 1 GM/50 ML BAG IV ×2 (09:41→22:50)
[2020-12-03] MEDS: Acetaminophen 325 MG Tablet 650 MG PO (09:53)
[2020-12-03] MEDS: BENZOCAINE/MENTHOL 1 LOZENGE MUCOUS MEM (09:54)
--- NOTE | 2020-12-03 09:59 | PCM.PN.SRG ---
Subjective Subjective Patient evaluated resting comfortably in bed. He notes some soreness at the chest catheter site. He was started on dialysis last night which went well. Objective Data Objective Data Vital Signs: Vital Signs Temp Pulse Resp BP Pulse Ox 98.8 F 68 18 142/78 H 96 12/03/20 09:40 12/03/20 09:40 12/03/20 09:40 12/03/20 09:40 12/03/20 09:40 Oxygen Flow Rate (L/min) [4] 2 Oxygen Flow Rate (L/min) [3] 2 Oxygen Flow Rate (L/min) [2] 2 Oxygen Flow Rate (L/min) [1 ( 2 Initial Baseline)] Oxygen Flow Rate (L/min) 2 Oxygen Delivery Method [4] Nasal Cannula Oxygen Delivery Method [3] Nasal Cannula Oxygen Delivery Method [2] Nasal Cannula Oxygen Delivery Method [1 ( Nasal Cannula Initial Baseline)] Oxygen Delivery Method Room Air Weight: 211 lb 13.828 oz Body Mass Index (BMI) 28.4 Intake & Output: Intake and Output for Last 24 Hours 12/01/20 12/02/20 12/03/20 23:59 23:59 23:59 Intake Total 6017.49 / 6377.49 1156.67 / 1156.67 2.5 / 2.5 Output Total 207 / 232 175 / 175 0 / 0 Balance 5810.49 / 6145.49 981.67 / 981.67 2.5 / 2.5 Medical Nutrition Assessment Dietitian: Nutrition Therapy Diagnosis Start: 12/01/20 11:26 Freq: Status: Active Protocol: Document 12/01/20 16:44 RMA (Rec: 12/01/20 16:44 RMA [id number]) Nutrition Malnutrition Evidence of Malnutrition Exists No Intake Problem Inadequate Oral Intake Etiology related to decreased appetite/ acute illness Signs/Symptoms as evidenced by refusal of meals today and poor intake meeting less than 50% estimated nutrition needs 3 days prior to admit. Status Active Problem Recommendation Dietitian Recommendations/Changes Will liberalize and change diet to low sodium especially given poor oral intake/refusal of meals. Will try 120ml Nepro TID w/ meals as tolerated. Encouraged ordering meals and taking as much as he can tolerate--pt seems agreeable. Will provide diet education as needed prior to d/c. Lab / Micro Data Result Diagrams: 12/03/20 05:48 12/03/20 05:48 Labs: Laboratory Results - last 24 hr 12/01/20 05:35: DESHAUN Screen Negative, STEFANO-1 Antibody Not Reportable, SS-A/Ro IgG Antibody Not Reportable, SS-B/La IgG Antibody Not Reportable, Sm (Sneed) Antibody Not Reportable, CYTOLOGY LABORATORY MANAGER Antibody Not Reportable, Scl-70 Scleroderma Ab Not Reportable, Double Strand DNA Ab Not Reportable, Centromere B Antibody Not Reportable 12/01/20 05:35: Total Protein (PEP) 5.3 L, Globulin 2.4, IgG 990, IgA 26 L, IgM 66, Immunofixation Screen Comment, Albumin (MARCUS) 2.9, Albumin/Globulin (MARCUS) 1.3, Xvzey-4-Moatwrpnh MARCUS 0.3, Kizoy-9-Msfpqyeft MARCUS 0.5, Beta-Globulins (MARCUS) 0.6 L, Gamma Globulins (MARCUS) 1.0, MARCUS M-Brown , MARCUS Comments Comment, c-ANCA Antibody <1:20, Atypical p-ANCA <1:20, p-ANCA Antibody <1:20, Free [place] LC, Quant 90.7 H, Free Lambda LC, Quant 38.9 H, Free [place]/Lambda Ratio 2.33 H 12/02/20 05:36: Hepatitis A Interp Cancelled, Hep Bs Ag Confirmation Cancelled, Hep B Surface Ag Comm Cancelled, Hep Bs Antibody Interp Cancelled, Hep B Core Total Ab Cancelled, Hepatitis C Antibody Cancelled, Hep C Ab Comment Cancelled 12/02/20 05:36: Hep Bs Antibody Non-Reactive 12/02/20 10:55: Urine Collection Time 24.0, Timed Urine Volume 175, Ur Total Protein 24 Hr 1382.5 H, Urine Total Protein 790.0 H 12/02/20 10:55: Creatinine 8.0 H*, Est GFR (MDRD) Af Amer 11 L, Est GFR (MDRD) Non-Af 9 L, Urine Collection Time 24.0, Timed Urine Volume 175, Urine Creatinine 783.0, Creatinine Clearance 12 L 12/03/20 05:48: WBC 4.5, RBC 3.68 L, Hgb 10.9 L, Hct 31.9 L, MCV 86.7, MCH 29.6, MCHC 34.2, RDW Std Deviation 38.3, RDW Coeff of Katty 11.9, Plt Count 121 L, MPV 9.6, Immature Gran % (Auto) 0.200, Neut % (Auto) 60.2, Lymph % (Auto) 20.6, [place] % (Auto) 16.1 H, Eos % (Auto) 2.5, Baso % (Auto) 0.4, Absolute Neuts (auto) 2.7, Absolute Lymphs (auto) 0.92, Nucleated RBC % 0 12/03/20 05:48: Sodium 137, Potassium 3.9, Chloride 105, Carbon Dioxide 20.0 L, Anion Gap 12, BUN 58 H, Creatinine 6.83 H, Estim Creat Clear Calc 18.62, Est GFR (MDRD) Af Amer 13 L, Est GFR (MDRD) Non-Af 11 L, BUN/Creatinine Ratio 8.5 L, Glucose 82, Calcium 7.9 L Micro: Microbiology 12/01/20 16:30 Mucosa - Nose SARS-CoV-2 Antigen (Rapid) - Final Radiography Diagnostic Testing: Radiology Impression Biopsy CT 12/02/20 13:00 IMPRESSION: Successful CT guided percutaneous kidney biopsy. Conscious sedation protocol was followed. Electronically Signed: Fazal Acosta MD at 12:54 EDT , Service support , Chest X-Ray 12/02/20 14:45 IMPRESSION: Satisfactory appearance of central venous catheter. at 1536 Reported and signed by: Selma Henderson MD Electronically Signed: Selma Henderson MD at 15:35 EDT Tel , Service support , Physical Exam Chest Chest Narrative: Right chest- tunneled dialysis catheter noted. No active bleeding or drainage noted. Dressing intact. No erythema noted. Assessment & Plan Assessment/Plan (1) Acute kidney injury: PLAN: Dialysis catheter placement successful We will sign off at this time Please reconsult if needed. Thank you for the opportunity to care for this patient. Charges/Coding Visit Charges Inpatient E&M: 72354 Init Hosp L1 (No charge/post-op)
[2020-12-03 10:05] LABS: Hep C Antibodies <0.1 s/co ratio (0.0-0.9); Hepatitis A AB, Total Negative (Negative)
--- NOTE | 2020-12-03 12:32 | PCM.PN.HOSP ---
Subjective Subjective Patient seen and examined. He complains of sore throat which started overnight. He was kept NPO overnight, due to his sore throat apparently. He had dialysis yesterday after placement of the tunneled dialysis catheter. He has no other complaints and review of systems is otherwise negative.His shortness of breath has improved after dialysis. Objective Data Objective Data Vital Signs: Vital Signs Temp Pulse Resp BP Pulse Ox 97.9 F 73 16 142/70 H 96 12/03/20 10:55 12/03/20 11:00 12/03/20 10:55 12/03/20 10:55 12/03/20 09:40 Oxygen Flow Rate (L/min) [4] 2 Oxygen Flow Rate (L/min) [3] 2 Oxygen Flow Rate (L/min) [2] 2 Oxygen Flow Rate (L/min) [1 ( 2 Initial Baseline)] Oxygen Flow Rate (L/min) 2 Oxygen Delivery Method [4] Nasal Cannula Oxygen Delivery Method [3] Nasal Cannula Oxygen Delivery Method [2] Nasal Cannula Oxygen Delivery Method [1 ( Nasal Cannula Initial Baseline)] Oxygen Delivery Method Room Air Weight: 211 lb 13.828 oz Body Mass Index (BMI) 28.4 Intake & Output: Intake and Output for Last 24 Hours 12/01/20 12/02/20 12/03/20 23:59 23:59 23:59 Intake Total 6017.49 / 6377.49 1156.67 / 1156.67 52.5 / 52.5 Output Total 207 / 232 175 / 175 0 / 0 Balance 5810.49 / 6145.49 981.67 / 981.67 52.5 / 52.5 Medical Nutrition Assessment Dietitian: Nutrition Therapy Diagnosis Start: 12/01/20 11:26 Freq: Status: Active Protocol: Document 12/01/20 16:44 RMA (Rec: 12/01/20 16:44 RMA [id number]) Nutrition Malnutrition Evidence of Malnutrition Exists No Intake Problem Inadequate Oral Intake Etiology related to decreased appetite/ acute illness Signs/Symptoms as evidenced by refusal of meals today and poor intake meeting less than 50% estimated nutrition needs 3 days prior to admit. Status Active Problem Recommendation Dietitian Recommendations/Changes Will liberalize and change diet to low sodium especially given poor oral intake/refusal of meals. Will try 120ml Nepro TID w/ meals as tolerated. Encouraged ordering meals and taking as much as he can tolerate--pt seems agreeable. Will provide diet education as needed prior to d/c. Lab / Micro Data Result Diagrams: 12/03/20 05:48 12/03/20 05:48 Labs: Laboratory Results - last 24 hr 12/01/20 05:35: DESHAUN Screen Negative, STEFANO-1 Antibody Not Reportable, SS-A/Ro IgG Antibody Not Reportable, SS-B/La IgG Antibody Not Reportable, Sm (Sneed) Antibody Not Reportable, PUBLIC HEALTH TECHNOLOGIST Antibody Not Reportable, Scl-70 Scleroderma Ab Not Reportable, Double Strand DNA Ab Not Reportable, Centromere B Antibody Not Reportable 12/01/20 05:35: Total Protein (PEP) 5.3 L, Globulin 2.4, IgG 990, IgA 26 L, IgM 66, Immunofixation Screen Comment, Albumin (MARCUS) 2.9, Albumin/Globulin (MARCUS) 1.3, Rzwjl-3-Siyviixxf MARCUS 0.3, Xamdn-0-Nboeshlyu MARCUS 0.5, Beta-Globulins (MARCUS) 0.6 L, Gamma Globulins (MARCUS) 1.0, MARCUS M-Brown , MARCUS Comments Comment, c-ANCA Antibody <1:20, Atypical p-ANCA <1:20, p-ANCA Antibody <1:20, Free [place] LC, Quant 90.7 H, Free Lambda LC, Quant 38.9 H, Free [place]/Lambda Ratio 2.33 H 12/02/20 05:36: Hepatitis A IgM Ab Negative, Hepatitis A Ab Total Negative, Hepatitis A Interp Cancelled, Hep Bs Antigen Negative, Hep Bs Ag Confirmation Cancelled, Hep B Surface Ag Comm Cancelled, Hep Bs Antibody Interp Cancelled, Hep B Core Total Ab Cancelled, Hep B Core IgM Ab Negative, Hepatitis C Antibody Cancelled, Hepatitis C Ab (EIA) <0.1, Hep C Ab Comment Cancelled 12/02/20 05:36: Hep Bs Antibody Non-Reactive 12/03/20 05:48: WBC 4.5, RBC 3.68 L, Hgb 10.9 L, Hct 31.9 L, MCV 86.7, MCH 29.6, MCHC 34.2, RDW Std Deviation 38.3, RDW Coeff of Katty 11.9, Plt Count 121 L, MPV 9.6, Immature Gran % (Auto) 0.200, Neut % (Auto) 60.2, Lymph % (Auto) 20.6, [place] % (Auto) 16.1 H, Eos % (Auto) 2.5, Baso % (Auto) 0.4, Absolute Neuts (auto) 2.7, Absolute Lymphs (auto) 0.92, Nucleated RBC % 0 12/03/20 05:48: Sodium 137, Potassium 3.9, Chloride 105, Carbon Dioxide 20.0 L, Anion Gap 12, BUN 58 H, Creatinine 6.83 H, Estim Creat Clear Calc 18.62, Est GFR (MDRD) Af Amer 13 L, Est GFR (MDRD) Non-Af 11 L, BUN/Creatinine Ratio 8.5 L, Glucose 82, Calcium 7.9 L Micro: Microbiology 12/01/20 16:30 Mucosa - Nose SARS-CoV-2 Antigen (Rapid) - Final Radiography Diagnostic Testing: Radiology Impression Biopsy CT 12/02/20 13:00 IMPRESSION: Successful CT guided percutaneous kidney biopsy. Conscious sedation protocol was followed. Electronically Signed: Fazal Acosta MD at 12:54 EDT , Service support , Chest X-Ray 12/02/20 14:45 IMPRESSION: Satisfactory appearance of central venous catheter. at 1536 Reported and signed by: Selma Henderson MD Electronically Signed: Selma Henderson MD at 15:35 EDT Tel , Service support , Physical Exam Const alert, oriented x3 and no apparent distress Exam Limitations: no limitations HEENT head/scalp atraumatic and moist oral mucous membranes HEENT Narrative: has mild erythema of oropharynx, but no evidence of enlarged tonsils or any swelling Head and Scalp: normocephalic Eyes PERRL, EOMs intact bilaterally and conjunctivae normal Neck no lymphadenopathy, supple and no JVD Resp normal respiratory effort Cardio regular rate, regular rhythm, S1 normal heart sound, S2 normal heart sound and no murmurs GI normal to inspection, nondistended, normoactive bowel sounds, soft to palpation, non-tender and non-distended Extremity normal to inspection, full ROM and no clubbing, cyanosis or edema Peripheral Pulses: Yes pulses 2+ throughout Skin Skin Narrative: resolving superficial ulcerations on lower extremities. Neuro oriented x3 and CN's II-XII intact bilaterally Sensorium / Orientation: awake and alert Psych affect normal Assessment & Plan Assessment/Plan (1) Acute kidney injury: (2) Pancytopenia: PLAN: Acute kidney injury etiology is still unclear nephrology on board had emergent dialysis yesterday after dialysis catheter was inserted. renal biopsy done and results pending. Cr down to 6.83 today. autoimmune serologies still pending. renal USG showed no hydronephrosis, and increased echogenicity of the kidneys suggesting medical renal disease. #Non anion gap metabolic acidosis likely due to acute kidney injury. bicarb is 20. nephrology on board #Sore throat patient complained of sore throat overnight and this morning. he had erythematous oropharynx on examination will give cepacol lozenges. Will order a diet for patient; I dont think patient needs a swallow evaluation, the reason I am informed he was apparently kept NPO overnight #Pancytopenia hematology on board; thought pancytopenia was due to acute viral illness, and not a primary bone marrrow disease hematology recommended serum and urine protein electrophoresis, and conservative management for now. wbc is up to 4.5 today, and platelets are also up to 121; hb is slightly down to 10.9. # Bilateral LE ulcerations has resolving superficial scabs on lower extremities per family, patient was recently in [facility] and was likely exposed to a lot of mosquitoes, so resolving scabs may be as a result of resolving insect bites. DVT prophylaxis: SCDs Disposition: patient and family requested transfer to [facility] for further evanluation. I called [facility] transfer line and spoke to Dr Waite (hospitalist) who declined transfer as she didnt see any medical necessity in the transfer since patient was receiving dialysis and was being worked up for the acute renal failure here; she therefore didnt see what further care patient would need at [facility]. Patient and family informed. Charges/Coding Visit Charges Inpatient E&M: 58034 Subs Hosp L3
[2020-12-03] MEDS: Heparin 10,000 UNITS/10 ML Vial 3200 UNITS IP (13:42)
--- NOTE | 2020-12-03 13:55 | PN.RENAL_ITS ---
Subjective Subjective seen on dialysis #2 today, run even. Still with anorexia, dry mouth. Tolerated kidney biopsy from yesterday. DESHAUN, ANCA unremarkable. Still anuric. Discussed with pt and pt spouse at bedside. Spoke with pt father on update. Objective Data Objective Data Vital Signs: Vital Signs Temp Pulse Resp BP Pulse Ox 97.9 F 73 16 142/70 H 96 12/03/20 10:55 12/03/20 11:00 12/03/20 10:55 12/03/20 10:55 12/03/20 09:40 Oxygen Flow Rate (L/min) [4] 2 Oxygen Flow Rate (L/min) [3] 2 Oxygen Flow Rate (L/min) [2] 2 Oxygen Flow Rate (L/min) [1 ( 2 Initial Baseline)] Oxygen Flow Rate (L/min) 2 Oxygen Delivery Method [4] Nasal Cannula Oxygen Delivery Method [3] Nasal Cannula Oxygen Delivery Method [2] Nasal Cannula Oxygen Delivery Method [1 ( Nasal Cannula Initial Baseline)] Oxygen Delivery Method Room Air Weight: 96.1 kg Body Mass Index (BMI) 28.4 Intake & Output: Intake and Output for Last 24 Hours 12/01/20 12/02/20 12/03/20 23:59 23:59 23:59 Intake Total 6017.49 / 6377.49 1156.67 / 1156.67 52.5 / 52.5 Output Total 207 / 232 175 / 175 0 / 0 Balance 5810.49 / 6145.49 981.67 / 981.67 52.5 / 52.5 Medical Nutrition Assessment Dietitian: Nutrition Therapy Diagnosis Start: 12/01/20 11:26 Freq: Status: Active Protocol: Document 12/01/20 16:44 RMA (Rec: 12/01/20 16:44 RMA [id number]) Nutrition Malnutrition Evidence of Malnutrition Exists No Intake Problem Inadequate Oral Intake Etiology related to decreased appetite/ acute illness Signs/Symptoms as evidenced by refusal of meals today and poor intake meeting less than 50% estimated nutrition needs 3 days prior to admit. Status Active Problem Recommendation Dietitian Recommendations/Changes Will liberalize and change diet to low sodium especially given poor oral intake/refusal of meals. Will try 120ml Nepro TID w/ meals as tolerated. Encouraged ordering meals and taking as much as he can tolerate--pt seems agreeable. Will provide diet education as needed prior to d/c. Lab / Micro Data Result Diagrams: 12/03/20 05:48 12/03/20 05:48 Labs: Laboratory Results - last 24 hr 12/01/20 05:35: DESHAUN Screen Negative, STEFANO-1 Antibody Not Reportable, SS-A/Ro IgG Antibody Not Reportable, SS-B/La IgG Antibody Not Reportable, Sm (Sneed) Antibody Not Reportable, SAND SCREENER OPERATOR Antibody Not Reportable, Scl-70 Scleroderma Ab Not Reportable, Double Strand DNA Ab Not Reportable, Centromere B Antibody Not Reportable 12/01/20 05:35: Total Protein (PEP) 5.3 L, Globulin 2.4, IgG 990, IgA 26 L, IgM 66, Immunofixation Screen Comment, Albumin (MARCUS) 2.9, Albumin/Globulin (MARCUS) 1.3, Vgkeb-3-Utnczngyp MARCUS 0.3, Heyum-9-Oapwyxuiw MARCUS 0.5, Beta-Globulins (MARCUS) 0.6 L, Gamma Globulins (MARCUS) 1.0, MARCUS M-Brown , MARCUS Comments Comment, c-ANCA Antibody <1:20, Atypical p-ANCA <1:20, p-ANCA Antibody <1:20, Free [place] LC, Quant 90.7 H, Free Lambda LC, Quant 38.9 H, Free [place]/Lambda Ratio 2.33 H 12/02/20 05:36: Hepatitis A IgM Ab Negative, Hepatitis A Ab Total Negative, Hepatitis A Interp Cancelled, Hep Bs Antigen Negative, Hep Bs Ag Confirmation Cancelled, Hep B Surface Ag Comm Cancelled, Hep Bs Antibody Interp Cancelled, Hep B Core Total Ab Cancelled, Hep B Core IgM Ab Negative, Hepatitis C Antibody Cancelled, Hepatitis C Ab (EIA) <0.1, Hep C Ab Comment Cancelled 12/02/20 05:36: Hep Bs Antibody Non-Reactive 12/03/20 05:48: WBC 4.5, RBC 3.68 L, Hgb 10.9 L, Hct 31.9 L, MCV 86.7, MCH 29.6, MCHC 34.2, RDW Std Deviation 38.3, RDW Coeff of Katty 11.9, Plt Count 121 L, MPV 9.6, Immature Gran % (Auto) 0.200, Neut % (Auto) 60.2, Lymph % (Auto) 20.6, [place] % (Auto) 16.1 H, Eos % (Auto) 2.5, Baso % (Auto) 0.4, Absolute Neuts (auto) 2.7, Absolute Lymphs (auto) 0.92, Nucleated RBC % 0 12/03/20 05:48: Sodium 137, Potassium 3.9, Chloride 105, Carbon Dioxide 20.0 L, Anion Gap 12, BUN 58 H, Creatinine 6.83 H, Estim Creat Clear Calc 18.62, Est GFR (MDRD) Af Amer 13 L, Est GFR (MDRD) Non-Af 11 L, BUN/Creatinine Ratio 8.5 L, Glucose 82, Calcium 7.9 L Micro: Microbiology 12/01/20 16:30 Mucosa - Nose SARS-CoV-2 Antigen (Rapid) - Final Radiography Diagnostic Testing: Radiology Impression Chest X-Ray 12/02/20 14:45 IMPRESSION: Satisfactory appearance of central venous catheter. at 1536 Reported and signed by: Selma Henderson MD Electronically Signed: Selma Henderson MD at 15:35 EDT Tel , Service support , Physical Exam Const alert, oriented x3 and no apparent distress HEENT HEENT Narrative: dry mucus membrane Resp clear to auscultation bilaterally GI non-tender and non-distended Palpation: soft Extremity Extremity Narrative: no edema Skin Skin Narrative: dry rash unchanged on ankles Psych cooperative Assessment & Plan Assessment/Plan (1) Acute kidney injury: PLAN: creatinine rising with poor urine output despite iv fluids. Dialysis #2 today. Still with anorexia, dry mouth. Anuric. s/p kidney biopsy yesterday. DESHAUN, ANCA unremarkable. DW pathologist at [facility]. Spoke with pt and pt father who is considering transfer to [facility] where his oncologist is. 2 4h urine CRCL 12, TP 1.4g. (2) Bilateral leg ulcer: PLAN: dry wounds bilateral LE (3) Pancytopenia: PLAN: f/u with hematology. for leukemia. protein electrophoresis pending (4) Proteinuria: PLAN: 24h urine protein 1.4g, await serologies, pursue kidney biopsy
--- NOTE | 2020-12-03 14:12 | DIALYSIS ---
Hemodialysis x 2.5 hrs. No Fluid removed today/ran even. Stable t/o and tolerated very well. CVC closed with heparin to each lumen fill volume. CVC dressing changed, site benign, CHG dressing applied. Report to Kyle JAY
[2020-12-03] MEDS: 0.9% Saline Lock 10 ML Syringe IV (17:25)
[2020-12-03] MEDS: Ondansetron 4 MG/2 ML Vial IV (17:25)
[2020-12-04] VITALS (11 sets, daily range): BP systolic 128–153; BP diastolic 67–91; PULSE 54–80; RESP 18–20; TEMP 37.1–37.6; O2SAT 92–94
[2020-12-04] MEDS: 0.9% Saline Lock 10 ML Syringe IV ×3 (06:01→21:28)
[2020-12-04] MEDS: Ondansetron 4 MG/2 ML Vial IV (06:01)
--- NOTE | 2020-12-04 08:43 | PN.RENAL_ITS ---
Subjective Subjective seen at start of dialysis, discussed orders with dialysis nurse, no new labs today. Pt complains of nausea, anorexia, no vomiting. +BM. Complains of fatigue, weakness, dyspnea with walking. No edema no cough. Urine output minimal, no gross hematuria s/p kidney biopsy 12/02. Objective Data Objective Data Vital Signs: Vital Signs Temp Pulse Resp BP Pulse Ox 99.6 F H 66 18 133/72 H 94 12/04/20 03:40 12/04/20 07:00 12/04/20 03:40 12/04/20 03:40 12/04/20 03:40 Oxygen Flow Rate (L/min) [4] 2 Oxygen Flow Rate (L/min) [3] 2 Oxygen Flow Rate (L/min) [2] 2 Oxygen Flow Rate (L/min) [1 ( 2 Initial Baseline)] Oxygen Flow Rate (L/min) 2 Oxygen Delivery Method [4] Nasal Cannula Oxygen Delivery Method [3] Nasal Cannula Oxygen Delivery Method [2] Nasal Cannula Oxygen Delivery Method [1 ( Nasal Cannula Initial Baseline)] Oxygen Delivery Method Room Air Weight: 96.5 kg Body Mass Index (BMI) 28.4 Intake & Output: Intake and Output for Last 24 Hours 12/02/20 12/03/20 12/04/20 23:59 23:59 23:59 Intake Total 1156.67 / 1156.67 1340.0 / 1340.0 Output Total 175 / 175 300 / 300 150 / 150 Balance 981.67 / 981.67 1040.0 / 1040.0 -150 / -150 Medical Nutrition Assessment Dietitian: Nutrition Therapy Diagnosis Start: 12/01/20 11:26 Freq: Status: Active Protocol: Document 12/03/20 16:23 RMA (Rec: 12/03/20 16:23 RMA [id number]) Nutrition Malnutrition Evidence of Malnutrition Exists No Intake Problem Inadequate Oral Intake Etiology related to decreased appetite/ acute illness Signs/Symptoms as evidenced by refusal of meals and poor intake meeting less than 50% estimated nutrition needs 3 days prior to admit and since admit. Status Active Problem Recommendation Dietitian Recommendations/Changes Will liberalize and change diet to no added salt. Continue 120ml Nepro TID w/ meals as tolerated. Encouraged ordering meals and taking as much as he can tolerate--pt seems agreeable but, not eating at meals. Lab / Micro Data Result Diagrams: 12/03/20 05:48 12/04/20 08:50 Labs: Laboratory Results - last 24 hr 12/02/20 05:36: Hepatitis A IgM Ab Negative, Hepatitis A Ab Total Negative, Hepatitis A Interp Cancelled, Hep Bs Antigen Negative, Hep Bs Ag Confirmation Cancelled, Hep B Surface Ag Comm Cancelled, Hep Bs Antibody Interp Cancelled, Hep B Core Total Ab Cancelled, Hep B Core IgM Ab Negative, Hepatitis C Antibody Cancelled, Hepatitis C Ab (EIA) <0.1, Hep C Ab Comment Cancelled Micro: Microbiology 12/01/20 16:30 Mucosa - Nose SARS-CoV-2 Antigen (Rapid) - Final Physical Exam Const alert, oriented x3 and no apparent distress General Appearance: well developed Resp clear to auscultation bilaterally Cardio regular rate, no murmurs and no rub GI non-tender and non-distended Auscultation: normoactive bowel sounds Palpation: soft Extremity no clubbing, cyanosis or edema Skin Skin Narrative: dry skin lesions on ankles Neuro no focal motor deficits Sensorium / Orientation: awake and alert Psych cooperative Assessment & Plan Assessment/Plan (1) Acute kidney injury: PLAN: Dialysis #3 today. Still with anorexia, dry mouth, nausea. Oliguric without hematuria s/p kidney biopsy 12/02. DESHAUN, ANCA unremarkable, no M spike. DW hospitalist, pt father requesting transfer to [facility] where his oncologist is. [facility] declined transfer since they did not feel the need for it. 24h urine CRCL 12, TP 1.4g. Await kidney biopsy prelim report, continue with renal replacement, monitor urine output, daily labs (2) Bilateral leg ulcer: PLAN: dry wounds bilateral LE resolving (3) Pancytopenia: PLAN: improving (4) Proteinuria: PLAN: 24h urine protein 1.4g, negative serologies, await kidney biopsy results (5) Iron deficiency anemia: PLAN: iv iron on dialysis
[2020-12-04 09:42] LABS: Anion Gap 11 (5-15); BUN 48 mg/dL (7-18); BUN/Creat Ratio 8.4 RATIO (10-20); Calcium,Total 8.1 mg/dL (8.5-10.1); Chloride 105 mmol/L (98-107); Creatinine, Serum 5.72 mg/dL (0.70-1.30); EST Glomerular Filtration Rate 13 mL/min (>60); Est Glom Filt Rate - Afr Amer 16 mL/min (>60); Estimated Creatinine Clearance 22.23 ml/min; Glucose 79 mg/dL (74-106); Potassium 3.8 mmol/L (3.5-5.1); Sodium Level 139 mmol/L (136-145)
--- NOTE | 2020-12-04 12:17 | PN.HOSP_ITS ---
Subjective Subjective Patient seen and examined. He complains of nausea. He has no other complaints. His shortness of breath has improved. Sore throat has also improved. Review of systems is otherwise negative. He is having dialysis today. Cr has trended down to 5.83 today with dialysis. REview of systems is otherwise negative. Objective Data Objective Data Vital Signs: Vital Signs Temp Pulse Resp BP Pulse Ox 99.6 F H 68 18 133/72 H 94 12/04/20 03:40 12/04/20 11:00 12/04/20 03:40 12/04/20 03:40 12/04/20 03:40 Oxygen Flow Rate (L/min) [4] 2 Oxygen Flow Rate (L/min) [3] 2 Oxygen Flow Rate (L/min) [2] 2 Oxygen Flow Rate (L/min) [1 ( 2 Initial Baseline)] Oxygen Flow Rate (L/min) 2 Oxygen Delivery Method [4] Nasal Cannula Oxygen Delivery Method [3] Nasal Cannula Oxygen Delivery Method [2] Nasal Cannula Oxygen Delivery Method [1 ( Nasal Cannula Initial Baseline)] Oxygen Delivery Method Room Air Weight: 212 lb 11.937 oz Body Mass Index (BMI) 28.4 Intake & Output: Intake and Output for Last 24 Hours 12/02/20 12/03/20 12/04/20 23:59 23:59 23:59 Intake Total 1156.67 / 1156.67 1340.0 / 1340.0 Output Total 175 / 175 300 / 300 150 / 150 Balance 981.67 / 981.67 1040.0 / 1040.0 -150 / -150 Medical Nutrition Assessment Dietitian: Nutrition Therapy Diagnosis Start: 12/01/20 11:26 Freq: Status: Active Protocol: Document 12/03/20 16:23 RMA (Rec: 12/03/20 16:23 RMA [id number]) Nutrition Malnutrition Evidence of Malnutrition Exists No Intake Problem Inadequate Oral Intake Etiology related to decreased appetite/ acute illness Signs/Symptoms as evidenced by refusal of meals and poor intake meeting less than 50% estimated nutrition needs 3 days prior to admit and since admit. Status Active Problem Recommendation Dietitian Recommendations/Changes Will liberalize and change diet to no added salt. Continue 120ml Nepro TID w/ meals as tolerated. Encouraged ordering meals and taking as much as he can tolerate--pt seems agreeable but, not eating at meals. Lab / Micro Data Result Diagrams: 12/03/20 05:48 12/04/20 08:50 Labs: Laboratory Results - last 24 hr 12/04/20 08:50: Sodium 139, Potassium 3.8, Chloride 105, Carbon Dioxide 23.0, Anion Gap 11, BUN 48 H, Creatinine 5.72 H, Estim Creat Clear Calc 22.23, Est GFR (MDRD) Af Amer 16 L, Est GFR (MDRD) Non-Af 13 L, BUN/Creatinine Ratio 8.4 L, Glucose 79, Calcium 8.1 L Micro: Microbiology 12/01/20 16:30 Mucosa - Nose SARS-CoV-2 Antigen (Rapid) - Final Physical Exam Const alert, oriented x3 and no apparent distress Exam Limitations: no limitations HEENT head/scalp atraumatic and moist oral mucous membranes Head and Scalp: normocephalic Eyes PERRL, EOMs intact bilaterally and conjunctivae normal Neck no lymphadenopathy, supple and no JVD Resp normal respiratory effort Cardio regular rate, regular rhythm, S1 normal heart sound, S2 normal heart sound and no murmurs GI normal to inspection, nondistended, normoactive bowel sounds, soft to palpation, non-tender and non-distended Extremity normal to inspection, full ROM and no clubbing, cyanosis or edema Skin Skin Narrative: resolving superficial ulcerations on lower extremities. Neuro oriented x3, CN's II-XII intact bilaterally and moves all extremities Sensorium / Orientation: awake and alert Psych affect normal Assessment & Plan Assessment/Plan (1) Acute kidney injury: (2) Pancytopenia: PLAN: Acute kidney injury * etiology is still unclear * Cr is trendinig downwards with dialysis. Cr is 5.82 today. * nephrology on board; renal biopsy results per discussion with fruit culler, appears to show an infectious pathology on the frozen sections; electron microscopy pending to confirm diagnosis. * patient had elevated free kappa and free lambda protein, as well as elevated kappa/lambda ratio. Hematology reviewed patient and think his symptoms are due to an infectious pathology. * renal USG showed no hydronephrosis, and increased echogenicity of the kidneys suggesting medical renal disease. * #Non anion gap metabolic acidosis * likely due to acute kidney injury. bicarb is 23 today * resolved. * nephrology on board * #Sore throat * resolved * anti-streptolysin antibody pending. ordered o/a to rule out strep infection as kidney injury is suspected to be of infectious pathology * #Pancytopenia * hematology on board; thought pancytopenia was due to acute viral illness, and not a primary bone marrrow disease * hematology recommended serum and urine protein electrophoresis, and conservative management for now. * wbc is up to 4.5 today, and platelets are also up to 121; hb is slightly down to 10.9. * # Bilateral LE ulcerations * has resolving superficial scabs on lower extremities * per family, patient was recently in [facility] and was likely exposed to a lot of mosquitoes, so resolving scabs may be as a result of resolving insect bites. * DVT prophylaxis: SCDs Charges/Coding Visit Charges Inpatient E&M: 49988 Subs Hosp L2
--- NOTE | 2020-12-04 12:19 | DIALYSIS ---
Hemodialysis x3 hours completed at 1150 on a 3K bath, 3rd treatment, tolerated well, UF 0mL (ran even), accessed via right chest tunneled dialysis catheter, worked well, BMP drawn pre-treatment, 125mg Ferrlecit given with treatment (dose 1 of 8), no dialysis planned for tomorrow, dialysis possibly Tuesday
[2020-12-04] MEDS: Cefazolin 1 GM/50 ML BAG IV ×2 (13:34→21:27)
--- NOTE | 2020-12-04 14:09 | ECHOD_ITS ---
Reason For Study: EMBOLI/ ENDOCARDITIS Procedure This was a 2D Doppler, Color Flow transthoracic echocardiogram. Exam performed portable in patient room. Left Ventricle Normal LV size. The estimated ejection fraction is 55 %. Normal diastology for age. No regional wall motion abnormalities noted. Right Ventricle Normal RV size. Normal systolic function. Atria Normal left atrium. Normal right atrium. No doppler evidence for ASD. Mitral Valve There is no mitral valve stenosis. No mitral valve insufficiency. Tricuspid Valve There is no tricuspid stenosis. Trivial tricuspid valve insufficiency. Unable to estimate RV systolic pressure due to insufficient tricuspid regurgitant envelope. Aortic Valve Trisinus/trileaflet aortic valve. There is no aortic stenosis. No aortic valve insufficiency. Pulmonic Valve There is no pulmonic valvular stenosis. Mild (1+) pulmonic valve insufficiency. Great Vessels Normal aortic root. Pericardium/Pleural No pericardial effusion. MMode/2D Measurements & Calculations LVIDd: 5.3 cm IVSd: 0.86 cm Ao root diam: 3.5 cm LVIDs: 3.8 cm LVPWd: 0.88 cm RVDd: 4.5 cm FS: 28.5 % LAV(MOD-bp): 65.4 ml LA A4 area: 22.9 cm2 LA dimension(2D): 4.0 cm LAV(MOD-bp) Indexed: 29.9 ml/m2 LAV(MOD-sp2): 54.7 ml LAV(MOD-sp4): 67.7 ml RA A4 area: 19.1 cm2 Time Measurements MV dec time: 0.18 sec Doppler Measurements & Calculations MV E max tony: 154.3 cm/sec Lat Peak E' Tony: 20.8 cm/sec Med Peak E' Tony: 14.2 cm/sec MV A max tony: 53.5 cm/sec E/E' lat: 7.4 E/E' med: 10.9 MV E/A: 2.9 Ao V2 max: 180.5 cm/sec LV V1 max: 130.5 cm/sec PA V2 max: 125.6 cm/sec Ao max P.0 mmHg LV V1 max P.8 mmHg PI end-d tony: 99.1 cm/sec TR max tony: 264.3 cm/sec TR max P.9 mmHg ECHO/Echo Complete Interpretation Summary The estimated ejection fraction is 55 %. Normal diastology for age. Mild (1+) pulmonic valve insufficiency. Ordering Physician: Munira Flores Referring Physician: BLANCHE ARIZMENDI Performed By: Lianna Doty, ANGELES, RVT
[2020-12-04 15:52] LABS: Lyme Scn Total Ab w/Rflx <0.91 ISR (0.00-0.90)
[2020-12-04 16:08] LABS: Albumin, Ur 88.3 % (.); Alpha-1-Globulin, Ur 0.3 % (.); Alpha-2-Globulins, Ur 3.1 % (.); Beta Globulin, Ur 4.3 % (.); Gamma Globulin, Ur 4.1 % (.); M-Spike, Ur % Not Observed % (Not Observed); Protein, 24Ur 1383 mg/24 hr (30-150)
[2020-12-04 20:16] LABS: IFE Result, Ur Comment: (.); Total Protein, Ur 790.1 mg/dL (Not Estab.)
[2020-12-04] MEDS: Acetaminophen 325 MG Tablet 650 MG PO (21:35)
[2020-12-05 03:00] VITALS: PULSE 67
[2020-12-05 03:20] VITALS: BP 153/86; PULSE 74; RESP 16; TEMP 36.6; O2SAT 96
[2020-12-05 06:57] LABS: Absolute Lymphocyte Count 0.98 X10^3/uL (0.83-4.51); Absolute Neutrophil Count 2.6 X10^3/uL (2.0-7.7); Basophil# 0.03 X10^3/uL; Basophil% 0.7 % (0-1); Eosinophil# 0.14 X10^3/uL; Eosinophils% 3.2 % (0-5); Hematocrit 30.4 % (40-54); Lymphocyte # 0.98 X10^3/ul (0.83-4.51); Lymphocyte % 22.7 % (19-41); Mean Corp Hgb Conc 36.2 g/dL (32-36); Mean Corpuscular Hgb 30.7 pg (27.0-32.0); Mean Corpuscular Volume 84.9 fL (80-94); Mean Platelet Vol. 10.1 fl (6.2-12.0); Monocyte# 0.55 X10^3/uL; Monocyte% 12.8 % (0-10); NRBC Flagged by Analyzer 0 % (0-5); Neutrophil % 60.4 % (47-70); Platelet Count 144 K/mm3 (150-450); RBC Distribution Width CV 11.9 % (11.6-14.6); RBC Distribution Width SD 36.5 fl (35.1-43.9); Red Blood Count 3.58 M/mm3 (4.6-6.2); White Blood Count 4.3 K/mm3 (4.4-11.0)
[2020-12-05 07:00] VITALS: PULSE 86
[2020-12-05] MEDS: 0.9% Saline Lock 10 ML Syringe IV (07:18)
[2020-12-05] MEDS: Ondansetron 4 MG/2 ML Vial IV (07:18)
[2020-12-05 07:22] LABS: Anion Gap 9 (5-15); BUN 38 mg/dL (7-18); BUN/Creat Ratio 7.7 RATIO (10-20); Calcium,Total 8.1 mg/dL (8.5-10.1); Chloride 103 mmol/L (98-107); Creatinine, Serum 4.96 mg/dL (0.70-1.30); EST Glomerular Filtration Rate 16 mL/min (>60); Est Glom Filt Rate - Afr Amer 19 mL/min (>60); Estimated Creatinine Clearance 25.64 ml/min; Glucose 78 mg/dL (74-106); Potassium 3.5 mmol/L (3.5-5.1); Sodium Level 137 mmol/L (136-145)
--- NOTE | 2020-12-05 10:05 | CASEMGMT ---
Per Dr. Flores and Kyle RN, pt is leaving AMA today and most likely, family will take pt to [facility] directly from [facility]. Steven JAY CM
[2020-12-05 11:00] VITALS: PULSE 76
--- NOTE | 2020-12-05 15:58 | DS.PCM_ITS ---
Providers Date of Admission: 11/30/20 Primary Care Physician: Dr. Cecil Arizmendi, Consultations 12/01/20 00:28 Consult: Nephrology Routine Consulting Provider: Ruchi Junior Reason for Consult: GHANSHYAM EMERGENT Consult: No MD Notified: Yes Date Notified: 11/30/20 Time Notified: 23:47 Method of Notification: Verbal Comments:: Was called from ED prior to admission per MD 12/01/20 07:44 Consult: Oncology/Hematology Routine Consulting Provider: Victorino Louise Reason for Consult: pancytopenia, GHANSHYAM, Fever EMERGENT Consult: No MD Notified: Yes Date Notified: 12/01/20 Time Notified: 07:44 Method of Notification: Verbal 12/02/20 09:15 Consult: General Surgery Routine Consulting Provider: Kathryn Sanderson Reason for Consult: needs tunneled dialysis catheter o.a of GHANSHYAM EMERGENT Consult: Yes MD Notified: Yes Date Notified: 12/02/20 Time Notified: 09:15 Method of Notification: Verbal 12/04/20 14:32 Consult: Infectious Disease Routine Consulting Provider: Dm Montes Reason for Consult: GHANSHYAM; thought to be due to infectious pathology. source of infxn not clear EMERGENT Consult: No MD Notified: Yes Date Notified: 12/04/20 Time Notified: 14:59 Method of Notification: Text Reason For Visit: GHANSHYAM Diagnosis Discharge Diagnosis (1) Acute kidney injury: Status: Acute Code(s): N17.9 - Acute kidney failure, unspecified (2) Bilateral leg ulcer: Status: Acute Code(s): L97.919 - Non-pressure chronic ulcer of unspecified part of right lower leg with unspecified severity; L97.929 - Non-pressure chronic ulcer of unspecified part of left lower leg with unspecified severity (3) Pancytopenia: Status: Acute Code(s): D61.818 - Other pancytopenia (4) Proteinuria: Status: Acute Code(s): R80.9 - Proteinuria, unspecified (5) Iron deficiency anemia: Status: Acute Code(s): D50.9 - Iron deficiency anemia, unspecified Medications at Discharge Home Medications NK 11/30/20 Hospital Course Operations None Procedures 2-D Echocardiogram Summary of Care Provided Minutes Spent on Discharge: 45 Hospital Course: Patient is a 20-year-old male with no significant past medical history was admitted through the ED on 11/30/2020 with a complaint of generalized fever and body aches and headaches for about 5 days prior to admission with associated severe nausea and inability to drink. He also complained of soft stools but stools were not watery and said he had bilateral lower extremity blisters which came on suddenly and popped spontaneously. He denied any sore throat initially but subsequently admitted to sore throat and said his urine has been dark orange the last time he urinated. On admission he was found to have GHANSHYAM with creatinine of over 7. Concern was that the GHANSHYAM may be related to vasculitis as well on account of lower extremity blisters. Patient was also noted to be thrombocytopenic. Kidney function worsened and so patient was initiated on dialysis. Oncology was also consulted on account of pancytopenia which was thought to be due to an infectious etiology and was suspected to recover on its own. Patient had protein electrophoresis done which showed an elevated kappa and lambda proteins as well as elevated kappa lambda ratio and this was reviewed by hematology who did not think there was any monoclonal spike and so thought it was an infectious pathology. Patient's creatinine gradually improved with dialysis. Lyme test done was negative. Renal ultrasound showed bilateral echogenic kidneys indicating of medical renal disease. He had a kidney biopsy done which per discussion with nephrology who had spoken to the pathologist at [facility] about the results, it showed lots of neutrophils on microscopy which was indicated of an infectious etiology for the kidney disease. Official report was still pending at that time of discharge. Patient and family initially requested transfer to [facility] in [place] as father had received care there previously and wanted her son to be sent today. [facility] team did however refused transfer as they did not think there was any medical necessity for it and patient was receiving the care he needed in [facility]. Due to concern about infectious pathology, 2D echo was done to rule out any evidence of endocarditis and this was negative and 2D echo was largely normal. Creatinine trended down to 4.9 on day of discharge. Antistreptolysin antibody was pending to rule out any source of infection. Patient and family requested that he be discharged AGAINST MEDICAL ADVICE on 12/06/[address] the emergency room due to [place] in [place] where they preferred to receive care. Patient and family were extensively coun seled about the risk of signing out AGAINST MEDICAL ADVICE but they insisted on leaving. Patient therefore signed out AGAINST MEDICAL ADVICE on 12/05/2020. Physical Exam Const alert, oriented x3 and no apparent distress General Appearance: cooperative, comfortable and well kempt Orientation / Consciousness: awake Exam Limitations: no limitations HEENT normocephalic, head/scalp atraumatic and moist oral mucous membranes Eyes PERRL, EOMs intact bilaterally and conjunctivae normal Neck no lymphadenopathy, supple and no JVD Resp normal respiratory effort Cardio regular rate, regular rhythm, S1 normal heart sound, S2 normal heart sound and no murmurs GI normal to inspection, nondistended, normoactive bowel sounds, soft to palpation, non-tender and non-distended Extremity normal to inspection, full ROM and no clubbing, cyanosis or edema Skin no rashes or lesions noted Skin Narrative: resolving superficial ulcerations on lower extremities. tunneled dialysis catheter in right infraclavicular region. Neuro oriented x3, CN's II-XII intact bilaterally and moves all extremities Sensorium / Orientation: awake and alert Psych affect normal Weight / BMI Weight Weight: 223 lb 8.78 oz Body Mass Index (BMI) 28.4 ABG / Lab / Microbiology Data Result Diagrams: 12/05/20 05:45 12/05/20 05:45 Laboratory: Laboratory Results - last 24 hr 12/02/20 10:55: Total Protein (PEP) Cancelled, Globulin Cancelled, Ur Total Protein 24 Hr 1383 H, Urine Total Protein 790.1, Urine Albumin 88.3, U Raggv-5-Rtrasyly 0.3, U Wiguf-4-Igwkqvfd 3.1, U Beta Globulin 4.3, U Gamma Globulin 4.1, U PEP M-Brown Not Observed, U PEP M-Brown 24 Hr TNP, IgG Cancelled, IgA Cancelled, IgM Cancelled, Immunofixation Screen Cancelled, Albumin (MARCUS) Cancelled, Albumin/Globulin (MARCUS) Cancelled, Musox-5-Yusatestb MARCUS Cancelled, Pvniw-7-Evkcoueyq MARCUS Cancelled, Beta-Globulins (MARCUS) Cancelled, Gamma Globulins (MARCUS) Cancelled, MARCUS M-Brown Cancelled, MARCUS Comments Cancelled, MARCUS Interpretation Cancelled, Urine Immunofixation Comment:, Ur Immunofix PEP Note Comment, Free [place] LC, Quant Cancelled, Free Lambda LC, Quant Cancelled, Free [place]/Lambda Ratio Cancelled 12/03/20 05:36: Lyme Disease Interpret REF LAB 12/05/20 05:45: WBC 4.3 L, RBC 3.58 L, Hgb 11.0 L, Hct 30.4 L, MCV 84.9, MCH 30.7, MCHC 36.2 H D, RDW Std Deviation 36.5, RDW Coeff of Katty 11.9, Plt Count 144 L, MPV 10.1, Immature Gran % (Auto) 0.200, Neut % (Auto) 60.4, Lymph % (Auto) 22.7, Rankin % (Auto) 12.8 H, Eos % (Auto) 3.2, Baso % (Auto) 0.7, Absolute Neuts (auto) 2.6, Absolute Lymphs (auto) 0.98, Nucleated RBC % 0 12/05/20 05:45: Sodium 137, Potassium 3.5, Chloride 103, Carbon Dioxide 25.0, Anion Gap 9, BUN 38 H, Creatinine 4.96 H, Estim Creat Clear Calc 25.64, Est GFR (MDRD) Af Amer 19 L, Est GFR (MDRD) Non-Af 16 L, BUN/Creatinine Ratio 7.7 L, Glucose 78, Calcium 8.1 L Microbiology: Microbiology 12/01/20 16:30 Mucosa - Nose SARS-CoV-2 Antigen (Rapid) - Final Radiography Diagnostic Testing: Radiology Impression Echocardiogram 12/04/20 14:09 Interpretation Summary The estimated ejection fraction is 55 %. Normal diastology for age. Mild (1+) pulmonic valve insufficiency. ___ Ordering Physician: Munira Flores Referring Physician: CECIL ARIZMENDI Performed By: Lianna oDty, ANGELES, RVT Meaningful Use Info Meaningful Use Diagnoses (Choose all that apply): None applicable Discharge Plan Admission Admit Date/Time: 11/30/20 23:48 Primary Reason for Your Visit: acute kidney injury Attending Provider: Munira Flores Primary Care Provider: Cecil Arizmendi Consulting Providers: Ruchi Junior ; Victorino Louise ; Kathryn Sanderson ; Dm Montes Instructions Additional Instructions / Restrictions: Patient Problems: Altered Health Status related to Hospitalization Patient Goals: *Optimal Level of Health *Keep Appointments *Medication Compliance *Remain Safe Discharge Orders/Prescriptions Prescriptions: No Action NK RF: 0 Referrals / Follow Up: Victorino Louise MD [STAFF PHYSICIAN] - 12/11/20 9:00 am Cecil Arizmendi DO [Primary Care Provider] - Disposition Disposition (needs filled in before D/C Order can be placed): Against Medical Advice Charges/Coding Visit Charges Inpatient E&M: 16130 Disch Hosp
[2020-12-06 09:07] LABS: Complement C3 19 mg/dL (82-167)
[2020-12-06 09:13] LABS: ASO Titer 586.9 IU/mL (0.0-200.0)
== END 2020-12-05 12:22 | disposition left against medical advice (07) | DRG 674 ==
LOC: ED 22:14 → PCU 12-01 00:10
PROVIDERS: Internal Medicine; Internal Medicine Hematology & Oncology; Internal Medicine Nephrology; Surgery; Admitting Provider Internal Medicine; Emergency Provider Emergency Medicine; PCP Family Medicine; Visit Provider Student in an Organized Health Care Education/Training Program
PROC: 0JH63XZ Insertion of Tunneled Vascular Access Device into Chest Subcutaneous Tissue and Fascia, Percutaneous Approach (ICD-10-PCS; principal; 2020-12-02 13:45)
DX: N17.9 Acute kidney failure, unspecified (principal); D61.818 Other pancytopenia; L97.929 Non-pressure chronic ulcer of unspecified part of left lower leg with unspecified severity; L97.919 Non-pressure chronic ulcer of unspecified part of right lower leg with unspecified severity; N00 Acute nephritic syndrome; R80.9 Proteinuria, unspecified; D50.9 Iron deficiency anemia, unspecified; J02.9 Acute pharyngitis, unspecified; Z99.2 Dependence on renal dialysis; Z87.891 Personal history of nicotine dependence; Z53.29 Procedure and treatment not carried out because of patient's decision for other reasons; Z53.20 Procedure and treatment not carried out because of patient's decision for unspecified reasons
CPT/HCPCS: 36415; 71045; 71250; 76000; 76770; 77012; 80048; 80053; 80074; 81001; 81050; 82248; 82550; 82570; 82575; 82607; 82728; 82784; 83010; 83540; 83550; 83615; 83883; 84100; 84156; 84165; 84166; 84300; 85025; 85045; 85610; 85652; 85730; 86038; 86060; 86160; 86225; 86235; 86256; 86334; 86335; 86618; 86704; 86705; 86706; 86708; 86709; 86803; 87340; 87426; 88305; 88313; 88346; 88348; 88350; 90937; 92526; 92610; 93306; 97802; 97803; 99156; 99284; J7030; A4216; C1750; G0257; J2405; J2916